=== PATIENT | male | born 1960 | race Caucasian/White ===

== ENCOUNTER → 2020-04-13 14:43 | Outpatient (BNVA) | payer BC, SELFPAY | PROVIDERS: PCP Internal Medicine; Referring Provider Internal Medicine; Visit Provider Internal Medicine Cardiovascular Disease | DX: Z76.89 Persons encountering health services in other specified circumstances (principal) ==

== ENCOUNTER 2020-06-10 08:28 | Outpatient (REF) | payer BC, SELFPAY | END 2020-06-10 08:29 | disposition home or self-care (01) | LOC: HO.LAB 08:28 | PROVIDERS: Visit Provider Internal Medicine | DX: Z20.828 Contact with and (suspected) exposure to other viral communicable diseases (principal) | CPT/HCPCS: C9803; U0003 ==

== ENCOUNTER → 2020-08-30 11:02 | Outpatient (BNVA) | payer MEDICAID, SELFPAY | PROVIDERS: PCP Internal Medicine; Visit Provider Nurse Practitioner Family | DX: I25.10 Atherosclerotic heart disease of native coronary artery without angina pectoris (principal); I21.9 Acute myocardial infarction, unspecified; R42 Dizziness and giddiness; Z79.82 Long term (current) use of aspirin; Z79.899 Other long term (current) drug therapy; Z87.891 Personal history of nicotine dependence | CPT/HCPCS: 99212 ==

== ENCOUNTER → 2020-10-27 07:34 | Outpatient (REF) | payer OTHER, SELFPAY ==
--- NOTE | 2020-10-27 07:40 | CA_ITS ---
Transthoracic Echocardiogram Patient (Last, First, Middle): Harvinder Cope, Gender: Male Date of : 1960 Age: 60 Procedure Date: 10/27/2020 Procedure Type: Transthoracic Echocardiogram Location: OP Height: 172.72 cm Weight: 77.11 kg BSA: 1.91 m2 Heart Rate: bpm BP: 144 / 80 mmHg Bulldogger: DEVIN Referring MD: Joann Valera KILN CAR REPAIRERMilad Cranberry Grower: Flo Vazquez MD Symptoms: I25.10 - Atherosclerotic heart disease of [place] coronary artery without angina pectoris Study Quality: Fair ECG Rhythm: Sinus Conclusions: - 1. Normal LV systolic and diastolic function with regional wall motion abnormality as denoted 2. Mildly dilated ascending aorta 3. Normal cardiac valvular Doppler 4. Normal RV systolic pressure 5. No pericardial effusion Findings Left Ventricle Normal left ventricular size, thickness, and systolic function. The visually estimated ejection fraction is between 55-60%. Spectral Doppler is indicative of a normal filling pattern. Wall Motion Rest Echo Findings The basal inferior, basal inferoseptal, and basal inferolateral segments are akinetic. All other scored wall segments showed normal motion. Right Ventricle Normal right ventricular cavity size and systolic function. Atria Both atria are normal in size. There is no evidence of interatrial shunt. Aortic Valve There is mild calcification of the aortic valve. There is no aortic valve stenosis. There is no aortic valve regurgitation. Mitral Valve There is mild anterior and posterior mitral leaflet thickening. There is trace mitral valve regurgitation. There is no mitral valve stenosis. Pulmonic Valve The pulmonic valve was not well visualized. Tricuspid Valve Likely normal tricuspid valve structure and function. There is trace tricuspid valve regurgitation. The right ventricular systolic pressure is normal. The right ventricular systolic pressure is 24 mmHg. Normal right atrial pressure. There is no evidence of pulmonary hypertension. Great Vessels The pulmonary artery was not well visualized. There is mild dilatation of the ascending aorta measuring 3.80 cm. Venous The inferior vena cava is normal in size and collapses greater than 50% with inspiration. Pericardium/Pleural There is no evidence of pericardial effusion. Prior Study Comparison No prior study available for comparison. Measurements 2D Linear Measurements IVSd: 1.10 0.6-0.9/0.6-1.0 cm LVIDd: 5.65 3.9-5.3/4.2-5.9 cm LVIDd Index: 2.96 2.4-3.2/2.2-3.1 cm/m2 LVIDs: 4.04 2.0-3.6 cm LVPWd: 0.92 0.7-1.1 cm Ao Root: 2.60 2.1-3.5 cm LA Diam: 3.70 2.7-3.8/3.0-4.0 cm LAIDs Index: 1.94 1.5-2.3 cm/m2 LV Mass: 281.69 67-162/88-224 g LV Mass Index: 147.48 43-95/49-115 g/m2 LVOT Diam: 2.00 3.0+(-)1.3 cm 2D Systolic Function EF 4C: 54.50 >55% EF 2C: 56.00 >55% EF BiP: 55.20 >55% Mitral Valve MV Pk E: 1.18 MV PK A: 0.89 MV Decel Time: 203.00 E/A: 1.30 E'Lateral: 11.50 E'Medial: 8.59 E/E' Med: 13.70 E/E' Lat: 10.30 PHT: 60.00 MVA PHT: 3.67 Decel [place]: 5.78 Aortic Valve AoV Pk Nicholas: 1.48 AoV Pk Grad: 9.00 LVOT LVOT Pk Nicholas: 1.04 LVOT Mn Nicholas: 0.73 LVOT VTI: 0.23 LVOT Pk Grad: 4.00 LVOT Mn Grad: 2.00 LVOT Diam: 2.00 LVOT Area: 3.14 Diastolic Function MV Pk E: 1.18 MV Pk A: 0.89 E/A: 1.30 E'Medial: 8.59 E/E' Med: 13.70 E' Laterial: 11.50 E/E' Lat: 10.30 Tricuspid Valve TR Pk Nicholas: 2.29 TR Pk Grad: 21.00 RA Press: 3.00 RVSP: 24.00 Great Vessels Aorta Ao Root-2D: 2.60 2.0-3.7 cm Ao Asc: 3.80 2.1-3.4 cm Updated in Other Vendor System with Status of Final Flo Vazquez MD electronically signed on 10/28/2020 12:38:09 PM with status of Final
== END ==
LOC: HO.CARD 07:34
PROVIDERS: PCP Internal Medicine; Visit Provider Nurse Practitioner Family
DX: I21.9 Acute myocardial infarction, unspecified (principal); I25.10 Atherosclerotic heart disease of native coronary artery without angina pectoris; Z82.49 Family history of ischemic heart disease and other diseases of the circulatory system
CPT/HCPCS: 93306

== ENCOUNTER → 2020-11-02 10:27 | Outpatient (BNVA) | payer OTHER, SELFPAY | PROVIDERS: PCP Internal Medicine; Visit Provider Internal Medicine Cardiovascular Disease | DX: I25.110 Atherosclerotic heart disease of native coronary artery with unstable angina pectoris (principal) | CPT/HCPCS: 99212 ==

== ENCOUNTER 2020-11-02 11:19 | Outpatient (REF) | payer OTHER, SELFPAY ==
[2020-11-02 11:42] LABS: COVID-19 Test Negative (Negative)
== END 2020-11-02 11:20 | disposition home or self-care (01) ==
LOC: HO.LAB 11:19
PROVIDERS: PCP Internal Medicine; Referring Provider Internal Medicine Cardiovascular Disease; Visit Provider Internal Medicine
DX: Z20.822 Contact with and (suspected) exposure to COVID-19 (principal)
CPT/HCPCS: 36415; 87635; C9803

== ENCOUNTER → 2020-11-15 11:42 | Outpatient (BNVA) | payer OTHER, SELFPAY | PROVIDERS: PCP Internal Medicine; Visit Provider Internal Medicine Cardiovascular Disease | DX: I25.10 Atherosclerotic heart disease of native coronary artery without angina pectoris (principal); R06.00 Dyspnea, unspecified | CPT/HCPCS: 99212 ==

== ENCOUNTER → 2020-11-23 08:47 | Outpatient (BNVA) | payer OTHER, SELFPAY | PROVIDERS: PCP Internal Medicine; Visit Provider Internal Medicine | DX: I25.10 Atherosclerotic heart disease of native coronary artery without angina pectoris (principal); R06.00 Dyspnea, unspecified; Z87.891 Personal history of nicotine dependence | CPT/HCPCS: 99202 ==

== ENCOUNTER 2020-11-28 10:01 | Outpatient (REF) | payer OTHER, SELFPAY ==
--- NOTE | 2020-11-28 17:23 | PFT_ITS ---
FLOWS: FEV1 71% of predicted at 2.42 L. FVC 68% of predicted at 3.07 L. FEV1 to FVC ratio of 0.79. Positive bronchodilator response. LUNG VOLUMES: Total lung capacity 74% of predicted at 4.89 L. Residual volume 96% of predicted at 2.05 L. Slow vital capacity 63% of predicted at 2.84 L. Expiratory reserve volume 18% of predicted at 0.23 L. Diffusion capacity is mildly decreased, diffusion capacity corrects to normal after adjustment for alveolar ventilation. IMPRESSION: Moderate restrictive ventilatory defect with positive bronchodilator response. Tanvir Sharif MD AP/MODL / [id number]
== END 2020-11-28 10:02 | disposition home or self-care (01) ==
LOC: HO.RESP 10:01
PROVIDERS: PCP Internal Medicine; Visit Provider Internal Medicine Cardiovascular Disease
DX: R06.00 Dyspnea, unspecified (principal)
CPT/HCPCS: 94060; 94727; 94729

== ENCOUNTER → 2020-12-04 15:28 | Outpatient (BNVA) | payer OTHER, SELFPAY | PROVIDERS: PCP Internal Medicine; Visit Provider Internal Medicine | DX: R06.02 Shortness of breath (principal); J44.9 Chronic obstructive pulmonary disease, unspecified; J98.4 Other disorders of lung; I25.10 Atherosclerotic heart disease of native coronary artery without angina pectoris; I21.9 Acute myocardial infarction, unspecified; Z87.891 Personal history of nicotine dependence; Z88.1 Allergy status to other antibiotic agents; Z88.8 Allergy status to other drugs, medicaments and biological substances; Z79.82 Long term (current) use of aspirin; Z79.899 Other long term (current) drug therapy | CPT/HCPCS: 99212 ==

== ENCOUNTER → 2021-01-03 14:51 | Outpatient (BNVA) | payer OTHER, SELFPAY | PROVIDERS: PCP Internal Medicine; Visit Provider Internal Medicine | DX: J98.4 Other disorders of lung (principal); J44.9 Chronic obstructive pulmonary disease, unspecified; J30.9 Allergic rhinitis, unspecified; Z87.891 Personal history of nicotine dependence | CPT/HCPCS: 99212 ==

== ENCOUNTER → 2021-02-14 12:49 | Outpatient (BNVA) | payer OTHER, SELFPAY | PROVIDERS: PCP Internal Medicine; Visit Provider Internal Medicine Cardiovascular Disease | DX: J98.4 Other disorders of lung (principal); R06.00 Dyspnea, unspecified; I25.10 Atherosclerotic heart disease of native coronary artery without angina pectoris; J44.9 Chronic obstructive pulmonary disease, unspecified; Z87.891 Personal history of nicotine dependence; Z98.890 Other specified postprocedural states; Z82.49 Family history of ischemic heart disease and other diseases of the circulatory system; Z88.1 Allergy status to other antibiotic agents; Z88.8 Allergy status to other drugs, medicaments and biological substances; Z79.899 Other long term (current) drug therapy | CPT/HCPCS: 99212 ==

== ENCOUNTER 2021-02-15 12:38 | Outpatient (REF) | payer OTHER, SELFPAY ==
[2021-02-15 13:08] LABS: Hematocrit 47.1 % (42-52); Hemoglobin 17.1 g/dl (14.0-18.0); IG%MD 0.3 %; Mean Corpuscular HGB Conc 36.3 g/dl (31.0-36.0); Mean Corpuscular Hemoglobin 33.6 pg (27.0-33.0); Mean Corpuscular Volume 92.5 fL (80-98); Mean Platelet Volume 9.2 fL (9.4-12.4); Mono%MD 8.8 %; Neut%MD 59.9 %; Platelet Count 209 X10*3/uL (160-400); Red Blood Count 5.09 X10*6/uL (4.60-5.80); White Blood Count 6.2 X10*3/uL (4.8-10.8)
[2021-02-15 13:28] LABS: Anion Gap 14 (12-20); Blood Urea Nitrogen 8 mg/dL (9-16); Calcium 9.7 mg/dL (8.4-10.2); Carbon Dioxide 26 mmol/L (22-29); Chloride 104 mmol/L (96-108); Estimated Glomerular Filt Rate > 60; Glucose Random 111 mg/dL (60-115); Potassium 4.2 mmol/L (3.3-5.1); Sodium 140 mmol/L (135-145)
[2021-02-15 13:32] LABS: B Type Natriuretic Peptide 26 pg/mL (<100)
[2021-02-15 13:50] LABS: Erythrocyte Sedimentation Rate 2 MM/HR (0-15)
[2021-02-15 14:21] LABS: Band Neutrophils Percent 1 % (3-5); Eosinophils Absolute Manual 0.1 X10*3/UL (0.0-0.8); Eosinophils Percent Manual 2 % (0-4); Lymphocytes Absolute Manual 1.7 X10*3/uL (0.6-4.8); Lymphocytes Percent Manual 27 % (20-40); Monocytes Absolute Manual 0.2 X10*3/uL (0.0-1.2); Monocytes Percent Manual 4 % (2-11); Neutrophils Absolute Manual 4.2 X10*3/uL (2.2-7.9); Neutrophils Percent Manual 66 % (45-73)
[2021-02-15 14:22] LABS: Platelet Estimate NORMAL (NORMAL); Platelet Morphology Comment NORMAL; RBC Morphology NORMAL
== END 2021-02-15 12:39 | disposition home or self-care (01) ==
LOC: HO.LAB 12:38
PROVIDERS: Visit Provider Internal Medicine Cardiovascular Disease
DX: J98.4 Other disorders of lung (principal)
CPT/HCPCS: 36415; 80048; 83880; 85007; 85027; 85652; 86141

== ENCOUNTER 2021-02-26 14:38 | Outpatient (REF) | payer OTHER, SELFPAY ==
--- NOTE | ~2021-02-26 | CT_ITS ---
EXAMINATION: CT CHEST WITHOUT CONTRAST CLINICAL INFORMATION: Other disorder lung COMPARISON: None TECHNIQUE: Multidetector volumetric CT imaging of the chest was done. Axial MIP volume rendering provided. Sagittal and coronal reformatted images were obtained. This CT examination was performed using dose optimization techniques as appropriate, variously including the following: *Automated exposure control *Adjustment of mA and/or kV according to patient size (this includes techniques or standardized protocols for targeted exams where dose is matched to indication/reason for exam; i.e. extremities or head) *Use of iterative reconstruction technique DLP: 270 mGy-cm FINDINGS: LUNGS: There is slight elevation of the right hemidiaphragm. There is increased peripheral markings in the posterior medial right lower lobe adjacent to vertebral body bony osteophyte. This probably represents compressive atelectasis or scarring. The lungs are otherwise clear. No evidence of emphysema, interstitial lung disease or bronchiectasis is seen. There is no endobronchial or endotracheal lesion MEDIASTINUM: There are no enlarged hilar or mediastinal lymph nodes. The heart is upper normal in size. There is coronary artery calcification. Thoracic aorta is upper normal in size. There is no pericardial effusion. The visualized thyroid gland is unremarkable. The esophagus is unremarkable. PLEURA: There is no pleural effusion. No pleural mass or thickening. AXILLA: There is atrophy or fatty replacement of the right lateral pectus muscles. There is shotty bilateral axillary lymphadenopathy. No enlarged lymph nodes are seen. UPPER ABDOMEN: There is fatty infiltration of the liver. There is a calcification adjacent to the right lobe of the liver. OSSEOUS STRUCTURES: There are degenerative changes of the spine. CT/CT chest wo con IMPRESSION: Slightly elevated right hemidiaphragm. Upper normal-size heart and thoracic aorta. Coronary artery calcification. Fatty liver.
== END 2021-02-26 14:39 | disposition home or self-care (01) ==
LOC: HO.CT 14:38
PROVIDERS: PCP Internal Medicine; Visit Provider Internal Medicine Cardiovascular Disease
DX: J98.4 Other disorders of lung (principal)
CPT/HCPCS: 71250

== ENCOUNTER → 2021-03-21 11:08 | Outpatient (BNVA) | payer OTHER, SELFPAY | PROVIDERS: PCP Internal Medicine; Visit Provider Internal Medicine Cardiovascular Disease | DX: I20.8 Other forms of angina pectoris (principal); J44.9 Chronic obstructive pulmonary disease, unspecified; J98.4 Other disorders of lung; R06.00 Dyspnea, unspecified | CPT/HCPCS: 99212 ==

== ENCOUNTER → 2021-04-04 15:11 | Outpatient (BNVA) | payer OTHER, SELFPAY | PROVIDERS: PCP Internal Medicine; Visit Provider Internal Medicine | DX: J98.4 Other disorders of lung (principal); J30.9 Allergic rhinitis, unspecified; J44.9 Chronic obstructive pulmonary disease, unspecified; R06.00 Dyspnea, unspecified; Z87.891 Personal history of nicotine dependence | CPT/HCPCS: 99212 ==

== ENCOUNTER → 2021-04-18 15:15 | Outpatient (BNVA) | payer OTHER, SELFPAY | PROVIDERS: PCP Internal Medicine; Visit Provider Internal Medicine | DX: J98.4 Other disorders of lung (principal); J44.9 Chronic obstructive pulmonary disease, unspecified; J30.9 Allergic rhinitis, unspecified; R06.00 Dyspnea, unspecified; Z87.891 Personal history of nicotine dependence; Z79.51 Long term (current) use of inhaled steroids | CPT/HCPCS: 99212 ==

== ENCOUNTER 2021-05-10 10:32 | Outpatient (REF) | payer OTHER, SELFPAY | END 2021-05-10 10:33 | disposition home or self-care (01) | LOC: HO.LAB 10:32 | PROVIDERS: PCP Internal Medicine; Visit Provider Internal Medicine | DX: Z20.822 Contact with and (suspected) exposure to COVID-19 (principal) | CPT/HCPCS: C9803; U0003; U0005 ==

== ENCOUNTER → 2021-06-27 14:06 | Outpatient (BNVA) | payer OTHER, SELFPAY | PROVIDERS: PCP Internal Medicine; Referring Provider Internal Medicine; Visit Provider Internal Medicine Cardiovascular Disease | DX: I25.119 Atherosclerotic heart disease of native coronary artery with unspecified angina pectoris (principal) | CPT/HCPCS: 99212 ==

== ENCOUNTER 2021-07-04 09:42 | Outpatient (REF) | payer OTHER, SELFPAY ==
--- NOTE | ~2021-07-04 | XR_ITS ---
EXAMINATION: XR SHOULDER, LEFT CLINICAL INFORMATION: Left shoulder pain COMPARISON: None TECHNIQUE: AP external rotation, Grashey, scapular Y, and axillary views of the left shoulder. FINDINGS: Visualized portion of the proximal left humerus demonstrate no fracture. Humeral head demonstrates good articulation with the glenoid fossa. 1 cm sclerotic focus within the left humeral head is nonspecific but statistically a bone island. There is a coarse calcification abutting the greater tuberosity of the humeral head. Moderate degenerative changes of the left acromioclavicular joint. Visualized left-sided ribs and lung parenchyma are unremarkable. XR/XR shoulder LT min 2V IMPRESSION: -Calcific tendinosis of the left shoulder is suspected. No fracture or dislocation.
[2021-07-04 10:51] LABS: Cholesterol 179 mg/dL; HDL Cholesterol 59 mg/dL; LDL Cholesterol Calculated 103 mg/dl; Triglycerides 85 mg/dL
[2021-07-04 10:58] LABS: Anion Gap 14 (12-20); Blood Urea Nitrogen 10 mg/dL (9-16); Calcium 9.9 mg/dL (8.4-10.2); Carbon Dioxide 29 mmol/L (22-29); Chloride 104 mmol/L (96-108); Estimated Glomerular Filt Rate > 60; Glucose Fasting 110 mg/dL (60-99); Potassium 4.4 mmol/L (3.3-5.1); Sodium 143 mmol/L (135-145)
[2021-07-04 11:07] LABS: Erythrocyte Sedimentation Rate 7 MM/HR (0-15)
[2021-07-04 11:10] LABS: Rheumatoid Factor < 15.0 IU/mL (<15.0); Uric Acid 5.4 mg/dL (3.4-7.0)
[2021-07-04 11:30] LABS: Syphilis Screen Nonreactive (Nonreactive)
[2021-07-04 11:40] LABS: Folate 8.5 ng/mL (> or = 4.0); Vitamin B12 348 pg/mL (200-900)
[2021-07-05 06:41] LABS: Lyme Blot 1.12 index
[2021-07-05 16:52] LABS: IgA 215 mg/dL (47-310); IgG 959 mg/dL (600-1640); IgM 182 mg/dL (50-300)
[2021-07-05 23:16] LABS: Anti Nuclear Antibody Screen NEGATIVE (NEGATIVE)
[2021-07-09 09:05] LABS: 18 KD (IgG) Band NON-REACTIVE; 23 KD (IgG) Band NON-REACTIVE; 23 KD (IgM) Band REACTIVE; 28 KD (IgG) Band NON-REACTIVE; 30 KD (IgG) Band NON-REACTIVE; 39 KD (IgM) Band NON-REACTIVE; 41 KD (IgM) Band NON-REACTIVE; 45 KD (IgG) Band NON-REACTIVE; 58 KD (IgG) Band NON-REACTIVE; 66 KD (IgG) Band NON-REACTIVE; 93 KD (IgG) Band NON-REACTIVE; Lyme Abs Screen POSITIVE; Lyme IgG Blot Interp NEGATIVE (NEGATIVE); Lyme IgM Blot Interp NEGATIVE (NEGATIVE)
== END 2021-07-04 09:43 | disposition home or self-care (01) ==
LOC: HO.XRAY 09:42
PROVIDERS: Absent Provider Internal Medicine Cardiovascular Disease; PCP Internal Medicine; Visit Provider Psychiatry & Neurology Neurology
DX: G62.9 Polyneuropathy, unspecified (principal); M19.90 Unspecified osteoarthritis, unspecified site; I25.10 Atherosclerotic heart disease of native coronary artery without angina pectoris
CPT/HCPCS: 36415; 73030; 80048; 80061; 82550; 82607; 82746; 82784; 84550; 85652; 86038; 86039; 86431; 86617; 86618; 86780

== ENCOUNTER → 2021-07-11 15:26 | Outpatient (BNVA) | payer OTHER, SELFPAY | PROVIDERS: PCP Internal Medicine; Visit Provider Internal Medicine | DX: J44.9 Chronic obstructive pulmonary disease, unspecified (principal); J30.9 Allergic rhinitis, unspecified; J98.4 Other disorders of lung; Z87.891 Personal history of nicotine dependence | CPT/HCPCS: 99212 ==

== ENCOUNTER → 2021-08-14 13:47 | Outpatient (BNVA) | payer OTHER, SELFPAY | PROVIDERS: PCP Internal Medicine; Visit Provider Physician Assistant | DX: M75.32 Calcific tendinitis of left shoulder (principal); M25.512 Pain in left shoulder; I25.10 Atherosclerotic heart disease of native coronary artery without angina pectoris; Z87.891 Personal history of nicotine dependence; Z98.890 Other specified postprocedural states; Z82.49 Family history of ischemic heart disease and other diseases of the circulatory system; Z88.1 Allergy status to other antibiotic agents; Z88.8 Allergy status to other drugs, medicaments and biological substances; Z79.899 Other long term (current) drug therapy; Z86.74 Personal history of sudden cardiac arrest | CPT/HCPCS: 99202; J1040 ==

== ENCOUNTER → 2021-09-18 15:19 | Outpatient (BNVA) | payer OTHER, SELFPAY | PROVIDERS: PCP Internal Medicine; Visit Provider Physician Assistant | DX: M75.32 Calcific tendinitis of left shoulder (principal) | CPT/HCPCS: 99212 ==

== ENCOUNTER → 2021-11-12 14:16 | Outpatient (BNVA) | payer OTHER, SELFPAY | PROVIDERS: PCP Internal Medicine; Visit Provider Internal Medicine | DX: J30.9 Allergic rhinitis, unspecified (principal); J98.4 Other disorders of lung; J44.9 Chronic obstructive pulmonary disease, unspecified; Z79.899 Other long term (current) drug therapy; Z87.891 Personal history of nicotine dependence | CPT/HCPCS: 99212 ==

== ENCOUNTER → 2021-11-21 14:00 | Outpatient (BNVA) | payer OTHER, SELFPAY | PROVIDERS: PCP Internal Medicine; Referring Provider Internal Medicine; Visit Provider Nurse Practitioner Family | DX: I25.10 Atherosclerotic heart disease of native coronary artery without angina pectoris (principal); E78.5 Hyperlipidemia, unspecified; J44.9 Chronic obstructive pulmonary disease, unspecified; I25.2 Old myocardial infarction; Z79.02 Long term (current) use of antithrombotics/antiplatelets; Z79.899 Other long term (current) drug therapy | CPT/HCPCS: 93005; 99212 ==

== ENCOUNTER 2022-03-22 14:35 | Outpatient (REF) | payer OTHER, SELFPAY ==
--- NOTE | ~2022-03-22 | CT_ITS ---
EXAMINATION: CT CHEST SCREENING CLINICAL INFORMATION: Former smoker 1 BPD x47 years. Quit x2 years. COMPARISON: None. TECHNIQUE: Multidetector volumetric CT imaging of the chest is performed without contrast using low dose technique. Additional 2D coronal and sagittal reformatted images and axial 3D maximum intensity projection (MIP) images are generated on the CT workstation. This CT examination was performed using dose optimization techniques as appropriate, variously including the following: *Automated exposure control *Adjustment of mA and/or kV according to patient size (this includes techniques or standardized protocols for targeted exams where dose is matched to indication/reason for exam; i.e. extremities or head) *Use of iterative reconstruction technique DLP: 68 mGy-cm FINDINGS: LUNGS: The lungs are well expanded and clear of acute pneumonic process. There is a patchy opacity in the right lower lobe mediobasal segment similar to previous study likely focal atelectasis. No pulmonary nodules, consolidation or ground-glass density seen. MEDIASTINUM: The thyroid lobes are symmetrical and normal. The central trachea and the bronchi are widely patent. The heart size and the great vessels are normal caliber. There is no pericardial effusion seen. No abnormal size mediastinal or hilar lymph nodes seen. CORONARY ARTERY CALCIFICATION: Moderate size coronary artery calcification seen. PLEURA: There is no pleural effusion. No pleural mass or thickening. AXILLA: No abnormal size lymph node seen. UPPER ABDOMEN: The liver is diffusely attenuated without any focal lesion or intrahepatic ductal dilatation. There are no radiopaque gallstones. Visualized spleen, pancreas and bilateral adrenal glands are unremarkable. OSSEOUS STRUCTURES: No lytic or sclerotic process seen. CT/CT lung screening IMPRESSION: No pulmonary nodules seen. Focal atelectasis right lower lobe mediobasal segment. Low-dose annual CT chest exam. ASSESSMENT: Lung-RADS category 1 RECOMMENDATION: Low-dose annual CT chest.
== END 2022-03-22 14:36 | disposition home or self-care (01) ==
LOC: HO.CT 14:35
PROVIDERS: PCP Internal Medicine; Visit Provider Physician Assistant Medical
DX: Z12.2 Encounter for screening for malignant neoplasm of respiratory organs (principal); Z87.891 Personal history of nicotine dependence
CPT/HCPCS: 71271; G0296

== ENCOUNTER → 2022-05-16 14:39 | Outpatient (BNVA) | payer OTHER, SELFPAY | PROVIDERS: PCP Internal Medicine; Visit Provider Internal Medicine | DX: J44.9 Chronic obstructive pulmonary disease, unspecified (principal); J98.4 Other disorders of lung; J30.9 Allergic rhinitis, unspecified; R06.00 Dyspnea, unspecified; Z79.899 Other long term (current) drug therapy | CPT/HCPCS: 99212 ==

== ENCOUNTER → 2022-05-22 13:08 | Outpatient (BNVA) | payer OTHER, SELFPAY | PROVIDERS: PCP Internal Medicine; Referring Provider Internal Medicine; Visit Provider Internal Medicine Cardiovascular Disease | DX: I25.118 Atherosclerotic heart disease of native coronary artery with other forms of angina pectoris (principal); Z79.02 Long term (current) use of antithrombotics/antiplatelets; Z95.5 Presence of coronary angioplasty implant and graft | CPT/HCPCS: 99212 ==

== ENCOUNTER → 2022-11-11 14:39 | Outpatient (BNVA) | payer MEDICARE, MEDICAID, SELFPAY | PROVIDERS: PCP Internal Medicine; Visit Provider Internal Medicine | DX: J44.9 Chronic obstructive pulmonary disease, unspecified (principal); J98.4 Other disorders of lung; J30.9 Allergic rhinitis, unspecified; R06.00 Dyspnea, unspecified; Z87.891 Personal history of nicotine dependence | CPT/HCPCS: 99212 ==

== ENCOUNTER → 2022-11-18 13:27 | Outpatient (BNVA) | payer MEDICARE, MEDICAID, SELFPAY | PROVIDERS: PCP Internal Medicine; Referring Provider Internal Medicine; Visit Provider Internal Medicine Cardiovascular Disease | DX: I25.118 Atherosclerotic heart disease of native coronary artery with other forms of angina pectoris (principal); R06.00 Dyspnea, unspecified | CPT/HCPCS: 93005; 99212 ==

== ENCOUNTER 2023-02-17 14:29 | Outpatient (AMB) | payer MEDICARE, MEDICAID, SELFPAY ==
--- NOTE | 2023-02-17 14:31 | MHC.OFFVIS ---
Intake Vital Signs 02/17/23 14:38 Height 5 ft 8 in Weight 196 lb BMI 29.8 BP 138/78 Blood Pressure Location Rt brachial Position Sitting Intake Visit Reasons: 3 MON FUP Intake Note: Patient is present for 3 Month follow up Patient Reports Amlodipine was decreased by to 5mg from 10mg due to side effects Patient States that his blood pressure has been good. States that his readings has been normal. 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 Allergies azithromycin Allergy (Unknown, Verified 02/17/23 14:40) Unknown losartan Adverse Reaction (Unknown, Verified 02/17/23 14:40) Unknown Medication List - Last Reconciled 02/17/23 by Alex Galarza MD Advair Diskus 250-50 mcg/dose (fluticasone propion-salmeterol) 1 inh inhalation BID NS albuterol sulfate 90 mcg/actuation 2 puffs inhalation Q4H PRN amlodipine 5 mg PO DAILY aspirin (Adult Low Dose Aspirin) 81 mg PO DAILY clopidogrel (Plavix) 75 mg PO DAILY ezetimibe (Zetia) 10 mg PO DAILY fexofenadine (Radha Allergy) 180 mg PO DAILY fluticasone propionate 50 mcg/actuation 2 sprays intranasal DAILY metoprolol succinate ER (Toprol XL) 100 mg PO DAILY nitroglycerin 0.4 mg sublingual Q5M PRN rosuvastatin 10 mg PO DAILY umeclidinium 62.5 mcg/actuation (Incruse Ellipta) 1 inh inhalation BEDTIME 30 days HPI HPI Comments History of Present Illness Details 62-year-old gentleman here follow-up. He had previous PCI to circumflex and right coronary. Left anterior descending artery was approximately 60-65% stenosis at that time . He presented for f/u and was complaining of shortness of breath. He was taken back for cardiac catheterization which showed patent stents in the right coronary artery as well as left circumflex artery. We performed FFR assessment of his left anterior descending artery which was abnormal. On pullback the gradient improved distal to the area of angiographic stenosis. Angiographically we could not find any stenosis in the area where the gradient actually existed. Also he was complaining of a lot of discomfort at rest which was not explained by the degree of coronary artery disease. We decided to stop and medically treat him and look for other reasons for his dyspnea. He was a former smoker and quit a year ago. He has followed up with pulmonology and has been diagnosed with asthma/COPD. He is on inhalers and is improving clinically. He returns for follow-up today. He has been doing reasonably well. He is able to walk and do activities but when he is going up hill he gets out of breath. He has not exercised significantly due to his breathing in the last year or 2 and probably has significant deconditioning at this 0.2. He is following with pulmonology and has been told that he is stable on the current inhalers. When he presented with acute coronary syndrome he had significant sweating and shortness of breath. He gets shortness of breath and chest tightness off and on which improves with inhalers. His main complaint is fatigue and the fact that he gets tired easily. I have explained to him that this is an unusual symptom for coronary disease. 02/17/2023: He returns for follow-up. He has been doing well. No chest discomfort or exertional shortness of breath. He is getting some breathing issues due to humidity. Taking medications regularly. No bleeding concerns. Overall clinically stable. [facility] Medical History History of nasal cavity, middle ear, or sinus malignancy History of ST elevation myocardial infarction (STEMI) Personal history of nicotine dependence Allergic rhinitis Restrictive lung disease Asthma-COPD overlap syndrome Family history of coronary artery disease CAD (coronary artery disease) Stable angina Surgical History History of nasal septoplasty History of tonsillectomy S/P cardiac cath Family History Father CVD (cardiovascular disease) Mother CVD (cardiovascular disease) Maternal Grandfather CVD (cardiovascular disease) Maternal Grandmother CVD (cardiovascular disease) Paternal Grandfather CVD (cardiovascular disease) Paternal Grandmother CVD (cardiovascular disease) Social History Alcohol intake: current Alcohol intake frequency: 0-2 drinks per day Alcohol type: beer Patient Tobacco Use Status: Former Tobacco user Quit Date: 2019 Tobacco use type: Cigarette Years Smoked: (former smoker, onset 26yo, 1ppd x 32yrs, 30pyh, quit 2019) Advance Directives Date on File: 03/10/20 Physical Exam Vital Signs: Last Vital Signs BP 138/78 02/17/23 14:38 BMI result Body Mass Index 29.8 GENERAL APPEARANCE: in no acute distress, pleasant. NECK: no carotid bruit, no jugular venous distention. SKIN: no suspicious lesions, warm and dry. HEART: no murmurs, regular rate and rhythm. LUNGS: clear to auscultation bilaterally. ABDOMEN: soft, nontender. EXTREMITIES: no edema. PERIPHERAL PULSES: equal. NEUROLOGIC: No gross deficits, AAO X 3 Assessment & Plan Assessment & Plan (1) Stable angina: Code(s): I20.8 - Other forms of angina pectoris Plan Pleasant 62 year gentleman who is here for follow-up. He has stable angina pectoris. He had RCA and circumflex PCI in the setting of STEMI. He was also noticed to have proximal LAD stenosis which was later checked with IFR but there was some discrepancy about the location of IFR abnormality and actual angiographic stenosis. It was decided to medically treat him and he has done well since then. He was diagnosed with lung disease and has been following closely with pulmonology. Overall clinically stable. Continue same medications for now. Follow-up with us in 4 months. Thank you for allowing me to participate in the care of your patient. Please feel free to contact me if you have any questions. Coding Level of Care Code Est Pt Level 4 (93354) Diagnoses Stable angina I20.8
[2023-02-17 14:38] VITALS: BP 138/78; BMI 29.8
== END 2023-02-17 14:55 | disposition home or self-care (01) ==
PROVIDERS: PCP Internal Medicine; Visit Provider Internal Medicine Cardiovascular Disease
DX: I20.8 Other forms of angina pectoris (principal)
CPT/HCPCS: 99214

== ENCOUNTER → 2023-02-17 14:29 | Outpatient (BNVA) | payer MEDICARE, MEDICAID, SELFPAY | PROVIDERS: PCP Internal Medicine; Visit Provider Internal Medicine Cardiovascular Disease | DX: I20.8 Other forms of angina pectoris (principal) | CPT/HCPCS: 99212 ==

== ENCOUNTER 2023-05-13 14:45 | Outpatient (AMB) | payer MEDICARE, MEDICAID, SELFPAY ==
[2023-05-13 15:06] VITALS: BP 102/72; PULSE 90; O2SAT 96; BMI 30.4
--- NOTE | 2023-05-13 15:06 | A.OFFVIS_ITS ---
Intake Vital Signs 05/13/23 15:06 Height 5 ft 8 in Weight 200 lb BMI 30.4 BP 102/72 Blood Pressure Location Lt brachial Position Sitting Pulse 90 Pulse Source Pulse Oximeter Pulse Oximetry (%) 96 Oxygen Delivery Method Room Air Intake Visit Reasons: Dyspnea Intake Note: pt is here for follow up and is not bad with breathing, weather changes botheri ng him, and coughing up colored phelgm. 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 Allergies azithromycin Allergy (Unknown, Verified 05/13/23 15:21) Unknown losartan Adverse Reaction (Unknown, Verified 05/13/23 15:21) Unknown Medication List - Last Reconciled 05/13/23 by Heath Vera MD Advair Diskus 250-50 mcg/dose (fluticasone propion-salmeterol) 1 inh inhalation BID NS albuterol sulfate 90 mcg/actuation 2 puffs inhalation Q4H PRN amlodipine 5 mg PO DAILY aspirin (Adult Low Dose Aspirin) 81 mg PO DAILY clopidogrel (Plavix) 75 mg PO DAILY ezetimibe (Zetia) 10 mg PO DAILY fexofenadine (Radha Allergy) 180 mg PO DAILY PRN fluticasone propionate 50 mcg/actuation 2 sprays intranasal DAILY PRN metoprolol succinate ER (Toprol XL) 100 mg PO DAILY nitroglycerin 0.4 mg sublingual Q5M PRN rosuvastatin 10 mg PO DAILY umeclidinium 62.5 mcg/actuation (Incruse Ellipta) 1 inh inhalation BEDTIME 30 days Do you need a note to return to daycare/school/sports/work: No HPI Dyspnea HPI Details THIS 62 YEARS OLD GENTLEMAN IS FOR HIS ROUTINE FOLLOW-UP AFTER 6 MONTHS. HE CLAIMS THAT THE FALL AND SPRING SEASONS OR BAD FOR HIS ALLERGIES. SO HE IS JUST OVER COMING INCREASED COUGH AND SHORTNESS OF BREATH WHICH RESULTED DUE TO CHANGE IN THE WEATHER. HE WAKES UP WITH A DRY MOUTH AND SOME FEELING OF MUCUS. ONCE HE GOES IN THE SHOWER AND BRINGS UP A FEW CHUNKS OF MUCUS HE FEELS MUCH BETTER WITH THE REST OF THE DAY. HE DOES HAVE ADVAIR 250-50 1 INHALATION B.I.D. WHICH HE USES 1 OR 2 PUFFS A DAY, NOW BECAUSE OF INCREASED SYMPTOMS HE IS STARTING TO USE 1 INHALATION B.I.D. REGULARLY. HE ALSO USES INCRUSE ELLIPTA 1 INHALATION DAILY IN THE EVENING. MILD NASAL CONGESTION WHICH IS CONTROLLED WITH USE OF THE FLONASE AND FEXOFENADINE 180 MG ONCE A DAY [facility].R.N.. [facility] Medical History History of nasal cavity, middle ear, or sinus malignancy History of ST elevation myocardial infarction (STEMI) Personal history of nicotine dependence Allergic rhinitis Restrictive lung disease Asthma-COPD overlap syndrome Family history of coronary artery disease CAD (coronary artery disease) Stable angina Surgical History History of nasal septoplasty History of tonsillectomy S/P cardiac cath Family History Father CVD (cardiovascular disease) Mother CVD (cardiovascular disease) Maternal Grandfather CVD (cardiovascular disease) Maternal Grandmother CVD (cardiovascular disease) Paternal Grandfather CVD (cardiovascular disease) Paternal Grandmother CVD (cardiovascular disease) Social History Alcohol intake: current Alcohol intake frequency: 0-2 drinks per day Alcohol type: beer Patient Tobacco Use Status: Former Tobacco user Quit Date: 2019 Tobacco use type: Cigarette Years Smoked: (former smoker, onset 26yo, 1ppd x 32yrs, 30pyh, quit 2019) Advance Directives Date on File: 03/10/20 Review of Systems Const All systems reviewed & are unremarkable except as noted in HPI and below Eyes Reports no additional complaints ENT Reports nasal congestion (Controlled) Card Denies chest pain, Denies irregular heart rhythm and Denies leg edema Resp Reports as per HPI GI Reports no additional complaints Reports no additional complaints Musc Reports myalgias Skin/Breast Reports system reviewed and no additional complaints, except as documented Neuro Reports no additional complaints Psych Reports no additional complaints Endo Reports no additional complaints Physical Exam Vital Signs: Last Vital Signs Pulse 90 05/13/23 15:06 BP 102/72 05/13/23 15:06 Pulse Ox 96 05/13/23 15:06 Oxygen Delivery Method Room Air 05/13/23 15:06 BMI result Body Mass Index 30.4 Const General: comfortable, no acute distress, alert and awake Orientation/consciousness: patient oriented x3 HEENT Head: Yes normal to inspection General nose exam: No nasal polyps present and No nasal discharge present Face and sinus: Yes sinuses nontender Mouth: oropharynx normal Throat: Yes posterior oropharynx normal Eyes General: appearance normal, both eyes and all related structures Neck Neck: Yes normal visual inspection, Yes no lymphadenopathy, Yes trachea midline and Yes no JVD Thyroid: Thyroid normal Chest Chest palpation & inspection: normal inspection of the chest, normal palpation of entire chest wall and no tenderness Resp Other: Percussion note is resonant, breath sounds are slightly distant with prolonged expiratory phase. No wheezes rhonchi or crepitations are heard. Cardio Palpation: normal PMI Rate: regular rate Rhythm: regular rhythm Heart sounds: no gallops and no murmurs Peripheral pulses: Peripheral pulses 2+ throughout GI Palpation (GI): Soft to palpation, nontender, No hepatosplenomegaly present and no masses Auscultation: normal bowel sounds Back/Spine/Pelvis Thoracic/Lumbar Spine: thoracic and lumbar spine normal to inspection, thoraco- lumbar ROM limited and thoraco-lumbar spasm Skin General skin exam: no rashes or lesions noted Neuro General: patient oriented x3 and no focal motor deficits Cranial nerves: Yes CN's II-XII intact bilaterally Extrem General: Yes normal to inspection, Yes no clubbing, cyanosis or edema and Yes no calf tenderness Psych Appearance: grossly normal and well kempt Speech and movement: Normal speech and movement present Assessment & Plan Assessment & Plan (1) Asthma-COPD overlap syndrome: Comment: (Former smoker, PFT showed [id number] obstructive airway disorder with excellent response to bronchodilator therapy) Patient claims to be feeling better with the current medical regimen. TX : Continue Advair 250-50 1 INH. bid ( at present he is using only 1 inhalation in the morning, I told him that if he is symptomatic then should go up to b.i.d. ) Continue INCRUSE Ellipta , 1 inhalation daily. And use ProAir 2 puffs Q 4-6 hours only p.r.n.. ( Script renewed ) Code(s): J44.9 - Chronic obstructive pulmonary disease, unspecified Plan: IN ADDITION TO THE ABOVE-NOTED REGIMEN, HE NEEDS TO USE THE VAPORIZER, ESPECIALLY IN THE BEDROOM AT NIGHTTIME. HE ADMITS THAT THE HUMIDIFICATION DOES HELP. (2) Allergic rhinitis: Comment: MILD TO MODERATE , chronic , may be the source of mucous in AMs. Seems to be controlled with current meds. TX: Continue using Flonase 2 spray each nostril daily and may use fexofenadine 180 mg or Claritin 10 mg once a day p.r.n. Reduce use of Dairy products, ( that should help to reduce the amount of mucus ) Code(s): J30.9 - Allergic rhinitis, unspecified Plan: ABOVE Coding Level of Care Code Est Pt Level 3 (11468) Diagnoses Asthma-COPD overlap syndrome J44.9 Allergic rhinitis J30.9
== END 2023-05-13 15:38 | disposition home or self-care (01) ==
PROVIDERS: PCP Internal Medicine; Visit Provider Internal Medicine
DX: J44.9 Chronic obstructive pulmonary disease, unspecified (principal); J30.9 Allergic rhinitis, unspecified
CPT/HCPCS: 99213

== ENCOUNTER → 2023-05-13 14:45 | Outpatient (BNVA) | payer MEDICARE, MEDICAID, SELFPAY | PROVIDERS: PCP Internal Medicine; Visit Provider Internal Medicine | DX: J44.9 Chronic obstructive pulmonary disease, unspecified (principal); J30.9 Allergic rhinitis, unspecified | CPT/HCPCS: 99212 ==

== ENCOUNTER 2023-06-16 15:29 | Outpatient (REF) | payer MEDICARE, MEDICAID, SELFPAY ==
--- NOTE | ~2023-06-16 | CT_ITS ---
EXAMINATION: CT CHEST SCREENING CLINICAL INFORMATION: Former smoker, quit 3 years ago. One pack per day for 32 years. COMPARISON: CT 03/22/2022. TECHNIQUE: Multidetector volumetric CT imaging of the chest is performed without contrast using low-dose technique. Additional 2D coronal and sagittal reformatted images and axial 3D maximum intensity projection (MIP) images are generated on the CT workstation. This CT examination was performed using dose optimization techniques as appropriate, variously including the following: *Automated exposure control *Adjustment of mA and/or kV according to patient size (this includes techniques or standardized protocols for targeted exams where dose is matched to indication/reason for exam; i.e. extremities or head) *Use of iterative reconstruction technique DLP: 56 mGy-cm FINDINGS: LUNGS: The lungs are well expanded and clear of acute pneumonic process. There has been interval clearing of the ill-defined patchy opacity in the right lower lobe mediobasal segment with some mild residual changes remaining. No concerning pulmonary nodules. MEDIASTINUM: The thyroid is unremarkable. The heart size and the great vessels are normal caliber. There is no pericardial effusion seen. No abnormal size mediastinal or hilar lymph nodes seen. CORONARY ARTERY CALCIFICATION: Moderate size coronary artery calcification seen. PLEURA: There is no pleural effusion. No pleural mass or thickening. AXILLA: No abnormal size lymph node seen. UPPER ABDOMEN: Again seen is diffusely decreased hepatic attenuation without any focal lesion or intrahepatic ductal dilatation. There are no radiopaque gallstones. Visualized spleen, pancreas and bilateral adrenal glands are unremarkable. OSSEOUS STRUCTURES: No lytic or sclerotic process seen. CT/CT lung screening IMPRESSION: No pulmonary nodules seen. Improved right lower lobe patchy density. ASSESSMENT: Lung-RADS category 1. RECOMMENDATION: Routine annual low-dose CT screening in 12 months.
== END 2023-06-16 15:30 | disposition home or self-care (01) ==
LOC: HO.CT 15:29
PROVIDERS: PCP Internal Medicine; Visit Provider Nurse Practitioner Family
DX: Z12.2 Encounter for screening for malignant neoplasm of respiratory organs (principal); Z87.891 Personal history of nicotine dependence
CPT/HCPCS: 71271

== ENCOUNTER 2023-06-23 13:41 | Outpatient (AMB) | payer MEDICARE, MEDICAID, SELFPAY ==
[2023-06-23 13:53] VITALS: BP 132/62; PULSE 85; BMI 27.1
--- NOTE | 2023-06-23 13:53 | MHC.OFFVIS ---
Intake Vital Signs 06/23/23 13:53 Height 5 ft 8 in Weight 178 lb 5.663 oz BMI 27.1 BP 132/62 Blood Pressure Location Lt brachial Position Sitting Pulse 85 Pulse Source Pulse Oximeter Intake Visit Reasons: 4 mth fu Intake Note: 4 mnth f/up pt its feeling fine. Math Instructor Required: No Accompanied by: Self / Same As Patient Allergies azithromycin Allergy (Unknown, Verified 05/13/23 15:21) Unknown losartan Adverse Reaction (Unknown, Verified 05/13/23 15:21) Unknown Medication List - Last Reconciled 06/23/23 by Alex Galarza MD Advair Diskus 250-50 mcg/dose (fluticasone propion-salmeterol) 1 inh inhalation BID NS albuterol sulfate 90 mcg/actuation (Ventolin HFA) 2 puffs inhalation Q4H PRN amlodipine 5 mg PO DAILY aspirin (Adult Low Dose Aspirin) 81 mg PO DAILY clopidogrel (Plavix) 75 mg PO DAILY ezetimibe (Zetia) 10 mg PO DAILY fexofenadine (Radha Allergy) 180 mg PO DAILY PRN fluticasone propionate 50 mcg/actuation 2 sprays intranasal DAILY PRN metoprolol succinate ER (Toprol XL) 100 mg PO DAILY nitroglycerin 0.4 mg sublingual Q5M PRN rosuvastatin 10 mg PO DAILY umeclidinium 62.5 mcg/actuation (Incruse Ellipta) 1 inh inhalation BEDTIME 30 days HPI HPI Comments History of Present Illness Details 62-year-old gentleman here follow-up. He had previous PCI to circumflex and right coronary. Left anterior descending artery was approximately 60-65% stenosis at that time . He presented for f/u and was complaining of shortness of breath. He was taken back for cardiac catheterization which showed patent stents in the right coronary artery as well as left circumflex artery. We performed FFR assessment of his left anterior descending artery which was abnormal. On pullback the gradient improved distal to the area of angiographic stenosis. Angiographically we could not find any stenosis in the area where the gradient actually existed. Also he was complaining of a lot of discomfort at rest which was not explained by the degree of coronary artery disease. We decided to stop and medically treat him and look for other reasons for his dyspnea. He was a former smoker and quit a year ago. He has followed up with pulmonology and has been diagnosed with asthma/COPD. He is on inhalers and is improving clinically. He returns for follow-up today. He has been doing reasonably well. He is able to walk and do activities but when he is going up hill he gets out of breath. He has not exercised significantly due to his breathing in the last year or 2 and probably has significant deconditioning at this 0.2. He is following with pulmonology and has been told that he is stable on the current inhalers. When he presented with acute coronary syndrome he had significant sweating and shortness of breath. He gets shortness of breath and chest tightness off and on which improves with inhalers. His main complaint is fatigue and the fact that he gets tired easily. I have explained to him that this is an unusual symptom for coronary disease. 02/17/2023: He returns for follow-up. He has been doing well. No chest discomfort or exertional shortness of breath. He is getting some breathing issues due to humidity. Taking medications regularly. No bleeding concerns. Overall clinically stable. 06/23/2023: He returns for follow-up. His dyspnea has been stable. He gets sharp left-sided chest pain lasting for few seconds along with right shoulder and leg pain. He has seen Neurology and was told that he has neuropathy. No exertional symptoms reported on follow-up. His last LDL cholesterol was 103. His target is less than 70 and by guidelines less than 55. He has not tolerated more than 10 mg of rosuvastatin. He is already on ezetimibe 10 mg daily. We discussed about PCSK9 but he has needle phobia and will not be able to inject himself. [facility] Medical History History of nasal cavity, middle ear, or sinus malignancy History of ST elevation myocardial infarction (STEMI) Personal history of nicotine dependence Allergic rhinitis Restrictive lung disease Asthma-COPD overlap syndrome Family history of coronary artery disease CAD (coronary artery disease) Stable angina Surgical History History of nasal septoplasty History of tonsillectomy S/P cardiac cath Family History Father CVD (cardiovascular disease) Mother CVD (cardiovascular disease) Maternal Grandfather CVD (cardiovascular disease) Maternal Grandmother CVD (cardiovascular disease) Paternal Grandfather CVD (cardiovascular disease) Paternal Grandmother CVD (cardiovascular disease) Social History Alcohol intake: current Alcohol intake frequency: 0-2 drinks per day Alcohol type: beer Patient Tobacco Use Status: Former Tobacco user Quit Date: 2019 Tobacco use type: Cigarette Years Smoked: (former smoker, onset 26yo, 1ppd x 32yrs, 30pyh, quit 2019) Advance Directives Date on File: 03/10/20 Review of Systems Const Reports chills, Reports fatigue, Reports fever(s), Reports frequent falls, Reports weakness, Reports weight gain and Reports weight loss ENT Reports dizziness Card Reports chest pain, Reports leg edema, Reports lightheadedness, Reports palpitations, Reports dyspnea and Reports dyspnea on exertion Resp Reports cough, Reports dyspnea and Reports dyspnea on exertion GI Reports hematochezia Musc Reports abnormal gait, Reports muscle weakness, Reports numbness, Reports radiating pain into limb and Reports tingling Neuro Reports abnormal gait, Reports dizziness, Reports frequent falls, Reports numbness, Reports tingling and Reports weakness Endo Reports fatigue and Reports palpitations Physical Exam Vital Signs: Last Vital Signs Pulse 85 06/23/23 13:53 BP 132/62 06/23/23 13:53 BMI result Body Mass Index 27.1 GENERAL APPEARANCE: in no acute distress, pleasant. NECK: no carotid bruit, no jugular venous distention. SKIN: no suspicious lesions, warm and dry. HEART: no murmurs, regular rate and rhythm. LUNGS: clear to auscultation bilaterally. ABDOMEN: soft, nontender. EXTREMITIES: no edema. PERIPHERAL PULSES: equal. NEUROLOGIC: No gross deficits, AAO X 3 Assessment & Plan Assessment & Plan (1) Stable angina: Code(s): I20.8 - Other forms of angina pectoris (2) Hyperlipidemia: Code(s): E78.5 - Hyperlipidemia, unspecified Plan Pleasant 63 year gentleman presenting for follow-up. He has known history of coronary disease and had previous PCI to right coronary artery and circumflex artery in the setting of ST-elevation HI. he had residual LAD disease for which he had angiography later on with IFR assessment but we decided to medically treat him at that time. He has done well with medical management. Blood pressure is well controlled. His LDL cholesterol is high. He is unable to tolerate statins due to muscle aches. He is on ezetimibe already. He can not use PCSK9 because of needle phobia. Would start him on bempedoic acid. We will check for insurance coverage. Thank you for allowing me to participate in the care of your patient. Please feel free to contact me if you have any questions. Coding Level of Care Code Est Pt Level 4 (59598) Diagnoses Stable angina I20.8 Hyperlipidemia E78.5
== END 2023-06-23 14:36 | disposition home or self-care (01) ==
PROVIDERS: PCP Internal Medicine; Visit Provider Internal Medicine Cardiovascular Disease
DX: I20.8 Other forms of angina pectoris (principal); E78.5 Hyperlipidemia, unspecified
CPT/HCPCS: 99214

== ENCOUNTER → 2023-06-23 13:41 | Outpatient (BNVA) | payer MEDICARE, MEDICAID, SELFPAY | PROVIDERS: PCP Internal Medicine; Visit Provider Internal Medicine Cardiovascular Disease | DX: I20.89 Other forms of angina pectoris (principal); E78.5 Hyperlipidemia, unspecified | CPT/HCPCS: 99212 ==

== ENCOUNTER 2023-10-06 13:32 | Outpatient (AMB) | payer MEDICARE, MEDICAID, SELFPAY ==
[2023-10-06 13:35] VITALS: BP 140/72; PULSE 88; BMI 30.5
--- NOTE | 2023-10-06 13:35 | MHC.OFFVIS ---
Vital Signs 10/06/23 13:35 Height 5 ft 8 in Weight 200 lb 9.93 oz BMI 30.5 BP 140/72 H Blood Pressure Location Lt brachial Position Sitting Pulse 88 Pulse Source Pulse Oximeter Intake Visit Reasons: 3 mth f/up Intake Note: pt state that he its doing fine. 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 Accompanied by: Self / Same As Patient Allergies azithromycin Allergy (Unknown, Verified 05/13/23 15:21) Unknown losartan Adverse Reaction (Unknown, Verified 05/13/23 15:21) Unknown Medication List - Last Reconciled 10/06/23 by Alex Galarza MD Advair Diskus 250-50 mcg/dose (fluticasone propion-salmeterol) 1 inh inhalation BID NS albuterol sulfate 90 mcg/actuation (Ventolin HFA) 2 puffs inhalation Q4H PRN amlodipine 5 mg PO DAILY aspirin (Adult Low Dose Aspirin) 81 mg PO DAILY bempedoic acid 180 mg PO DAILY clopidogrel (Plavix) 75 mg PO DAILY ezetimibe (Zetia) 10 mg PO DAILY fexofenadine (Radha Allergy) 180 mg PO DAILY PRN fluticasone propionate 50 mcg/actuation 2 sprays intranasal DAILY metoprolol succinate ER (Toprol XL) 100 mg PO DAILY nitroglycerin 0.4 mg sublingual Q5M PRN rosuvastatin 10 mg PO DAILY umeclidinium 62.5 mcg/actuation (Incruse Ellipta) 1 inh inhalation BEDTIME 30 days HPI Comments Details: 62-year-old gentleman here follow-up. He had previous PCI to circumflex and right coronary. Left anterior descending artery was approximately 60-65% stenosis at that time . He presented for f/u and was complaining of shortness of breath. He was taken back for cardiac catheterization which showed patent stents in the right coronary artery as well as left circumflex artery. We performed FFR assessment of his left anterior descending artery which was abnormal. On pullback the gradient improved distal to the area of angiographic stenosis. Angiographically we could not find any stenosis in the area where the gradient actually existed. Also he was complaining of a lot of discomfort at rest which was not explained by the degree of coronary artery disease. We decided to stop and medically treat him and look for other reasons for his dyspnea. He was a former smoker and quit a year ago. He has followed up with pulmonology and has been diagnosed with asthma/COPD. He is on inhalers and is improving clinically. He returns for follow-up today. He has been doing reasonably well. He is able to walk and do activities but when he is going up hill he gets out of breath. He has not exercised significantly due to his breathing in the last year or 2 and probably has significant deconditioning at this 0.2. He is following with pulmonology and has been told that he is stable on the current inhalers. When he presented with acute coronary syndrome he had significant sweating and shortness of breath. He gets shortness of breath and chest tightness off and on which improves with inhalers. His main complaint is fatigue and the fact that he gets tired easily. I have explained to him that this is an unusual symptom for coronary disease. 02/17/2023: He returns for follow-up. He has been doing well. No chest discomfort or exertional shortness of breath. He is getting some breathing issues due to humidity. Taking medications regularly. No bleeding concerns. Overall clinically stable. 06/23/2023: He returns for follow-up. His dyspnea has been stable. He gets sharp left-sided chest pain lasting for few seconds along with right shoulder and leg pain. He has seen Neurology and was told that he has neuropathy. No exertional symptoms reported on follow-up. His last LDL cholesterol was 103. His target is less than 70 and by guidelines less than 55. He has not tolerated more than 10 mg of rosuvastatin. He is already on ezetimibe 10 mg daily. We discussed about PCSK9 but he has needle phobia and will not be able to inject himself. 09/26/23: He is here for follow-up. He is saying breathing is stable. He has started taking bempedoic acid and has been experiencing some aches and pains in the thighs at nighttime. He has not tolerated statins in the past. He has a needle phobia and will do use PCSK9. He has some atypical chest pains, neck pains and body aches. [facility] Medical History History of nasal cavity, middle ear, or sinus malignancy History of ST elevation myocardial infarction (STEMI) Personal history of nicotine dependence Allergic rhinitis Restrictive lung disease Asthma-COPD overlap syndrome Family history of coronary artery disease CAD (coronary artery disease) Stable angina Surgical History History of nasal septoplasty History of tonsillectomy S/P cardiac cath Family History Father CVD (cardiovascular disease) Mother CVD (cardiovascular disease) Maternal Grandfather CVD (cardiovascular disease) Maternal Grandmother CVD (cardiovascular disease) Paternal Grandfather CVD (cardiovascular disease) Paternal Grandmother CVD (cardiovascular disease) Social History Alcohol intake: current Alcohol intake frequency: 0-2 drinks per day Alcohol type: beer Patient Tobacco Use Status: Former Tobacco user Quit Date: 2019 Tobacco use type: Cigarette Years Smoked: (former smoker, onset 26yo, 1ppd x 32yrs, 30pyh, quit 2019) Advance Directives Date on File: 03/10/20 Review of Systems Const Denies chills, Denies fatigue, Denies fever(s), Denies frequent falls, Denies weakness, Denies weight gain and Denies weight loss ENT Denies dizziness Card Denies chest pain, Denies leg edema, Denies lightheadedness, Denies palpitations, Denies dyspnea and Denies dyspnea on exertion Resp Denies cough, Denies dyspnea and Denies dyspnea on exertion GI Denies hematochezia Musc Denies abnormal gait, Denies muscle weakness, Denies numbness, Denies radiating pain into limb and Denies tingling Neuro Denies abnormal gait, Denies dizziness, Denies frequent falls, Denies numbness, Denies tingling and Denies weakness Endo Denies fatigue and Denies palpitations Physical Exam Vital Signs: Last Vital Signs Pulse 88 10/06/23 13:35 BP 140/72 H 10/06/23 13:35 BMI result Body Mass Index 30.5 GENERAL APPEARANCE: in no acute distress, pleasant. NECK: no carotid bruit, no jugular venous distention. SKIN: no suspicious lesions, warm and dry. HEART: no murmurs, regular rate and rhythm. LUNGS: clear to auscultation bilaterally. ABDOMEN: soft, nontender. EXTREMITIES: no edema. PERIPHERAL PULSES: equal. NEUROLOGIC: No gross deficits, AAO X 3 Assessment & Plan Assessment & Plan (1) Stable angina: Code(s): I20.8 - Other forms of angina pectoris Category: Medical (2) CAD (coronary artery disease): Comment: (PCI of LCx & RCA with 60-65 % stenosis of LAD and is on medical therapy) Code(s): I25.10 - Atherosclerotic heart disease of [place] coronary artery without angina pectoris Category: Medical (3) Hyperlipidemia: Code(s): E78.5 - Hyperlipidemia, unspecified Category: Medical Plan Pleasant 63 year gentleman who is here for follow-up. He has known history of coronary artery disease with RCA and circumflex PCI. He has residual disease in the LAD which was medically managed. He is stable from cardiovascular point of view. Most of his dyspnea is related to lung disease and he is closely following with pulmonology. His blood pressure is elevated. I am adding isosorbide mononitrate 30 mg daily. He has not using any Viagra/Cialis. In terms of his hyperlipidemia, he has not tolerated statins in the past. He can not use PCSK9 because he has needle phobia. He is on Zetia 10 mg daily and bempedoic acid. He is getting some muscle aches with bempedoic acid but they appear tolerable. He will get repeat lipid panel in few weeks. If LDL is not at target of less than 70 then we may have to consider referral to lipidology in [place]. Thank you for allowing me to participate in the care of your patient. Please feel free to contact me if you have any questions. Coding Level of Care Code Est Pt Level 4 (83545) Diagnoses Stable angina I20.8 CAD (coronary artery disease) I25.10 Hyperlipidemia E78.5
== END 2023-10-06 14:13 | disposition home or self-care (01) ==
PROVIDERS: PCP Internal Medicine; Visit Provider Internal Medicine Cardiovascular Disease
DX: I25.10 Atherosclerotic heart disease of native coronary artery without angina pectoris (principal); E78.5 Hyperlipidemia, unspecified
CPT/HCPCS: 99214

== ENCOUNTER → 2023-10-06 13:32 | Outpatient (BNVA) | payer MEDICARE, MEDICAID, SELFPAY | PROVIDERS: PCP Internal Medicine; Visit Provider Internal Medicine Cardiovascular Disease | DX: I20.89 Other forms of angina pectoris (principal); I25.10 Atherosclerotic heart disease of native coronary artery without angina pectoris; E78.5 Hyperlipidemia, unspecified | CPT/HCPCS: 99212 ==

== ENCOUNTER 2023-11-11 13:15 | Outpatient (AMB) | payer MEDICARE, MEDICAID, SELFPAY ==
--- NOTE | 2023-11-11 13:24 | A.OFFVIS_ITS ---
Vital Signs 11/11/23 13:25 Height 5 ft 8 in Weight 199 lb 8.293 oz BMI 30.3 BP 122/68 Blood Pressure Location Lt brachial Position Sitting Pulse 72 Pulse Source Pulse Oximeter Pulse Oximetry (%) 96 Oxygen Delivery Method Room Air Intake Visit Reasons: Dyspnea, COPD follow-up Intake Note: pt is here for follow up and states he feels his breathing is better since he moved to new home, minimal phelgm. Medical Office Specialist Required: No Allergies azithromycin Allergy (Unknown, Verified 11/11/23 13:34) Unknown losartan Adverse Reaction (Unknown, Verified 11/11/23 13:34) Unknown Medication List - Last Reconciled 11/11/23 by Heath Vera MD Advair Diskus 250-50 mcg/dose (fluticasone propion-salmeterol) 1 inh inhalation BID NS albuterol sulfate 90 mcg/actuation (Ventolin HFA) 2 puffs inhalation Q4H PRN amlodipine 5 mg PO DAILY aspirin (Adult Low Dose Aspirin) 81 mg PO DAILY bempedoic acid 180 mg PO DAILY clopidogrel (Plavix) 75 mg PO DAILY ezetimibe (Zetia) 10 mg PO DAILY fexofenadine (Radha Allergy) 180 mg PO DAILY PRN fluticasone propionate 50 mcg/actuation 2 sprays intranasal DAILY isosorbide mononitrate ER 30 mg PO DAILY metoprolol succinate ER (Toprol XL) 100 mg PO DAILY nitroglycerin 0.4 mg sublingual Q5M PRN rosuvastatin 10 mg PO DAILY umeclidinium 62.5 mcg/actuation (Incruse Ellipta) 1 inh inhalation BEDTIME 30 days Do you need a note to return to daycare/school/sports/work: No HPI HPI Dyspnea: Details: 63 years old gentleman with longstanding history of allergic rhinitis, asthma/COPD , quit smoking 3 years ago. Comes for follow-up after 6 months. Symptom medically much better since he has moved to his new [facility]. Still continues to use Flonase just off and on and fexofenadine 180 mg daily. Also continues to use Advair as well as Incruse Ellipta on a daily basis. He has only occasional nasal congestion, only occasional bouts of cough, hardly gets short of breath on exertion as long as he uses his inhalers. [facility] Medical History History of nasal cavity, middle ear, or sinus malignancy History of ST elevation myocardial infarction (STEMI) Personal history of nicotine dependence Allergic rhinitis Restrictive lung disease Asthma-COPD overlap syndrome Family history of coronary artery disease CAD (coronary artery disease) Stable angina Surgical History History of nasal septoplasty History of tonsillectomy S/P cardiac cath Family History Father CVD (cardiovascular disease) Mother CVD (cardiovascular disease) Maternal Grandfather CVD (cardiovascular disease) Maternal Grandmother CVD (cardiovascular disease) Paternal Grandfather CVD (cardiovascular disease) Paternal Grandmother CVD (cardiovascular disease) Social History Alcohol intake: current Alcohol intake frequency: 0-2 drinks per day Alcohol type: beer Patient Tobacco Use Status: Former Tobacco user Tobacco use type: Cigarette Years Smoked: (former smoker, onset 26yo, 1ppd x 32yrs, 30pyh, quit 2020) Advance Directives Date on File: 03/10/20 Review of Systems Const All systems reviewed & are unremarkable except as noted in HPI and below Eyes Reports no additional complaints ENT Reports nasal congestion (Controlled) Card Denies chest pain, Denies irregular heart rhythm and Denies leg edema Resp Reports as per HPI GI Reports no additional complaints Reports no additional complaints Musc Reports myalgias Skin/Breast Reports system reviewed and no additional complaints, except as documented Neuro Reports no additional complaints Psych Reports no additional complaints Endo Reports no additional complaints Physical Exam Vital Signs: Last Vital Signs Pulse 72 11/11/23 13:25 BP 122/68 11/11/23 13:25 Pulse Ox 96 11/11/23 13:25 Oxygen Delivery Method Room Air 11/11/23 13:25 BMI result Body Mass Index 30.3 Const General: comfortable, no acute distress, alert and awake Orientation/consciousness: patient oriented x3 HEENT Head: Yes normal to inspection General nose exam: No nasal polyps present and No nasal discharge present Face and sinus: Yes sinuses nontender Mouth: oropharynx normal Throat: Yes posterior oropharynx normal Eyes General: appearance normal, both eyes and all related structures Neck Neck: Yes normal visual inspection, Yes no lymphadenopathy, Yes trachea midline and Yes no JVD Thyroid: Thyroid normal Chest Chest palpation & inspection: normal inspection of the chest, normal palpation of entire chest wall and no tenderness Resp Other: Percussion note is resonant, breath sounds are slightly distant with prolonged expiratory phase. No wheezes rhonchi or crepitations are heard. Cardio Palpation: normal PMI Rate: regular rate Rhythm: regular rhythm Heart sounds: no gallops and no murmurs Peripheral pulses: Peripheral pulses 2+ throughout GI Palpation (GI): Soft to palpation, nontender, No hepatosplenomegaly present and no masses Auscultation: normal bowel sounds Back/Spine/Pelvis Thoracic/Lumbar Spine: thoracic and lumbar spine normal to inspection, thoraco- lumbar ROM limited and thoraco-lumbar spasm Skin General skin exam: no rashes or lesions noted Neuro General: patient oriented x3 and no focal motor deficits Cranial nerves: Yes CN's II-XII intact bilaterally Extrem General: Yes normal to inspection, Yes no clubbing, cyanosis or edema and Yes no calf tenderness Psych Appearance: grossly normal and well kempt Speech and movement: Normal speech and movement present Office Procedures Spirometry Testing Spirometry Comments: Spirometry done in the office, Dr. Vera has the results results scanned to his chart. 82943- Spirometry Results Reviewed Results Reviewed: Spirometry FVC FEV1 FEV1/FVC FEF 25-75 PFT . 2020 59 % 61 % 77 60 % 11/10 66 66 77 65 Improved C/W mild to [place] restrictive pattern., obstructive component is all taken care of. Assessment & Plan Assessment & Plan (1) Asthma-COPD overlap syndrome: Comment: (Former smoker, PFT showed [id number] obstructive airway disorder with excellent response to bronchodilator therapy) Patient claims to be feeling better with the current medical regimen. Code(s): J44.9 - Chronic obstructive pulmonary disease, unspecified Category: Medical Plan: [place] : Continue Advair 250-50 1 INH. bid ( at present he is using only 1 inhalation in the morning, I told him that if he is symptomatic then should go up to b.i.d. ) Continue INCRUSE Ellipta , 1 inhalation daily. And use ProAir 2 puffs Q 4-6 hours only p.r.n.. ( Script renewed ) (2) Allergic rhinitis: Comment: MILD TO MODERATE , chronic , may be the source of mucous in AMs. Seems to be controlled with current meds. Code(s): J30.9 - Allergic rhinitis, unspecified Category: Medical Plan: [place]: Continue using Flonase 2 spray each nostril daily ( but he uses only p.r.n. because with continued usage he gets nasal bleeding ) and may use fexofenadine 180 mg or Claritin 10 mg once a day p.r.n. (3) Personal history of nicotine dependence: Comment: (former smoker, onset 26yo, 1ppd x 32yrs, 30pyh, quit 2019) He is in an [place] [facility] screening program. last LDCT Benign Cat 1 Code(s): Z87.891 - Personal history of nicotine dependence Category: Medical Plan: continue in the program for 2 more years Coding Level of Care Code Est Pt Level 3 (21444) Diagnoses Asthma-COPD overlap syndrome J44.9 Allergic rhinitis J30.9 Personal history of nicotine dependence Z87.891 CPT Codes Spirometry - CPT: 71472- Spirometry ([id number])
[2023-11-11 13:25] VITALS: BP 122/68; PULSE 72; O2SAT 96; BMI 30.3
== END 2023-11-11 13:58 | disposition home or self-care (01) ==
PROVIDERS: PCP Internal Medicine; Referring Provider Internal Medicine; Visit Provider Internal Medicine
DX: J44.9 Chronic obstructive pulmonary disease, unspecified (principal); J30.9 Allergic rhinitis, unspecified; Z87.891 Personal history of nicotine dependence
CPT/HCPCS: 94010; 99213

== ENCOUNTER → 2023-11-11 13:15 | Outpatient (BNVA) | payer MEDICARE, MEDICAID, SELFPAY | PROVIDERS: PCP Internal Medicine; Visit Provider Internal Medicine | DX: J44.9 Chronic obstructive pulmonary disease, unspecified (principal); J30.9 Allergic rhinitis, unspecified; Z87.891 Personal history of nicotine dependence | CPT/HCPCS: 94010; 99212 ==

== ENCOUNTER 2024-05-05 10:08 | Outpatient (AMB) | payer MEDICARE, MEDICAID, SELFPAY ==
[2024-05-05 10:38] VITALS: BP 120/72; PULSE 67; BMI 31.0
--- NOTE | 2024-05-05 10:38 | MHC.OFFVIS ---
Vital Signs 05/05/24 10:38 Height 5 ft 8 in Weight 204 lb 2.369 oz BMI 31.0 BP 120/72 Blood Pressure Location Lt brachial Position Sitting Pulse 67 Pulse Source Monitor Intake Visit Reasons: r/s 02/03 1 year followup w/ekg Intake Note: 1 yr f/up Director Of Quality Improvement Required: No Accompanied by: Self / Same As Patient Allergies azithromycin Allergy (Unknown, Verified 11/11/23 13:34) Unknown losartan Adverse Reaction (Unknown, Verified 11/11/23 13:34) Unknown Medication List - Last Reconciled 05/05/24 by Alex Galarza MD albuterol sulfate 90 mcg/actuation (Ventolin HFA) 2 puffs inhalation Q4H PRN amlodipine 5 mg PO DAILY aspirin (Adult Low Dose Aspirin) 81 mg PO DAILY bempedoic acid 180 mg PO DAILY clopidogrel (Plavix) 75 mg PO DAILY ezetimibe (Zetia) 10 mg PO DAILY fexofenadine (Radha Allergy) 180 mg PO DAILY PRN fluticasone furoate-vilanterol 100-25 mcg/dose (Breo Ellipta) 1 inh inhalation DAILY 30 days fluticasone propion-salmeterol 250-50 mcg/dose (Advair Diskus) 1 inh inhalation BID fluticasone propionate 50 mcg/actuation 2 sprays intranasal DAILY isosorbide mononitrate ER 30 mg PO DAILY metoprolol succinate ER (Toprol XL) 100 mg PO DAILY nitroglycerin 0.4 mg sublingual Q5M PRN rosuvastatin 10 mg PO DAILY umeclidinium 62.5 mcg/actuation (Incruse Ellipta) 1 inh inhalation BEDTIME HPI Comments Details: 63-year-old gentleman here follow-up. He had previous PCI to circumflex and right coronary. Left anterior descending artery was approximately 60-65% stenosis at that time . He presented for f/u and was complaining of shortness of breath. He was taken back for cardiac catheterization which showed patent stents in the right coronary artery as well as left circumflex artery. We performed FFR assessment of his left anterior descending artery which was abnormal. On pullback the gradient improved distal to the area of angiographic stenosis. Angiographically we could not find any stenosis in the area where the gradient actually existed. Also he was complaining of a lot of discomfort at rest which was not explained by the degree of coronary artery disease. We decided to stop and medically treat him and look for other reasons for his dyspnea. He was a former smoker and quit a year ago. He has followed up with pulmonology and has been diagnosed with asthma/COPD. He is on inhalers and is improving clinically. He returns for follow-up today. He has been doing reasonably well. He is able to walk and do activities but when he is going up hill he gets out of breath. He has not exercised significantly due to his breathing in the last year or 2 and probably has significant deconditioning at this 0.2. He is following with pulmonology and has been told that he is stable on the current inhalers. When he presented with acute coronary syndrome he had significant sweating and shortness of breath. He gets shortness of breath and chest tightness off and on which improves with inhalers. His main complaint is fatigue and the fact that he gets tired easily. I have explained to him that this is an unusual symptom for coronary disease. 02/17/2023: He returns for follow-up. He has been doing well. No chest discomfort or exertional shortness of breath. He is getting some breathing issues due to humidity. Taking medications regularly. No bleeding concerns. Overall clinically stable. 06/23/2023: He returns for follow-up. His dyspnea has been stable. He gets sharp left-sided chest pain lasting for few seconds along with right shoulder and leg pain. He has seen Neurology and was told that he has neuropathy. No exertional symptoms reported on follow-up. His last LDL cholesterol was 103. His target is less than 70 and by guidelines less than 55. He has not tolerated more than 10 mg of rosuvastatin. He is already on ezetimibe 10 mg daily. We discussed about PCSK9 but he has needle phobia and will not be able to inject himself. 09/26/23: He is here for follow-up. He is saying breathing is stable. He has started taking bempedoic acid and has been experiencing some aches and pains in the thighs at nighttime. He has not tolerated statins in the past. He has a needle phobia and will do use PCSK9. He has some atypical chest pains, neck pains and body aches. 05/05/2024: He returns for follow-up. Dyspnea is stable. No chest pain. No bleeding concerns currently. Taking medications regularly. Tolerating the statins at the current dose. [facility] Medical History (Updated 04/27/24 @ 11:40 by Nory Valdovinos PA-C) History of nasal cavity, middle ear, or sinus malignancy History of ST elevation myocardial infarction (STEMI) Personal history of nicotine dependence Allergic rhinitis Restrictive lung disease Asthma-COPD overlap syndrome Family history of coronary artery disease CAD (coronary artery disease) Stable angina Surgical History History of nasal septoplasty History of tonsillectomy S/P cardiac cath Family History Father CVD (cardiovascular disease) Mother CVD (cardiovascular disease) Maternal Grandfather CVD (cardiovascular disease) Maternal Grandmother CVD (cardiovascular disease) Paternal Grandfather CVD (cardiovascular disease) Paternal Grandmother CVD (cardiovascular disease) Social History Alcohol intake: current Alcohol intake frequency: 0-2 drinks per day Alcohol type: beer Patient Tobacco Use Status: Former Tobacco user Tobacco use type: Cigarette Years Smoked: (former smoker, onset 26yo, 1ppd x 32yrs, 30pyh, quit 2019) Advance Directives Date on File: 03/10/20 Review of Systems Const Denies chills, Denies fatigue, Denies fever(s), Denies frequent falls, Denies weakness, Denies weight gain and Denies weight loss ENT Denies dizziness Card Denies chest pain, Denies leg edema, Denies lightheadedness, Denies palpitations, Denies dyspnea and Denies dyspnea on exertion Resp Denies cough, Denies dyspnea and Denies dyspnea on exertion GI Denies hematochezia Musc Denies abnormal gait, Denies muscle weakness, Denies numbness, Denies radiating pain into limb and Denies tingling Neuro Denies abnormal gait, Denies dizziness, Denies frequent falls, Denies numbness, Denies tingling and Denies weakness Endo Denies fatigue and Denies palpitations Physical Exam Vital Signs: Last Vital Signs Pulse 67 05/05/24 10:38 BP 120/72 05/05/24 10:38 BMI result Body Mass Index 31.0 GENERAL APPEARANCE: in no acute distress, pleasant. NECK: no carotid bruit, no jugular venous distention. SKIN: no suspicious lesions, warm and dry. HEART: no murmurs, regular rate and rhythm. LUNGS: clear to auscultation bilaterally. ABDOMEN: soft, nontender. EXTREMITIES: no edema. PERIPHERAL PULSES: equal. NEUROLOGIC: No gross deficits, AAO X 3 Office Procedures EKG Details: Sinus rhythm 67 beats per minute, normal axis, inferior infarct, poor R-wave progression and can not rule out anterior infarct, QTC 416 milliseconds. [id number], Complete Assessment & Plan Assessment & Plan (1) Stable angina: Code(s): I20.8 - Other forms of angina pectoris Category: Medical (2) CAD (coronary artery disease): Comment: (PCI of LCx & RCA with 60-65 % stenosis of LAD and is on medical therapy) Code(s): I25.10 - Atherosclerotic heart disease of [place] coronary artery without angina pectoris Category: Medical (3) Hyperlipidemia: Code(s): E78.5 - Hyperlipidemia, unspecified Category: Medical Plan Pleasant 63 year gentleman who is here for follow-up. He has known history of coronary artery disease with RCA and circumflex PCI. He has residual disease in the LAD which was medically managed. He is stable from cardiovascular point of view. Most of his dyspnea is related to lung disease and he is closely following with pulmonology. Blood pressure is well controlled after addition of isosorbide mononitrate. He has not using any Viagra/Cialis. He had some issues with high intensity statin therapy in the past. He is currently taking bempedoic acid, Crestor 10 mg and zetia. LDL target is less than 70. He should have fasting lipid panel at least once a year. Thank you for allowing me to participate in the care of your patient. Please feel free to contact me if you have any questions. Coding Level of Care Code Est Pt Level 4 (58219) Diagnoses Stable angina I20.8 CAD (coronary artery disease) I25.10 Hyperlipidemia E78.5 CPT Codes EKG - CPT: 91225-[id number], Complete ([id number])
== END 2024-05-05 11:27 | disposition home or self-care (01) ==
PROVIDERS: PCP Internal Medicine; Visit Provider Internal Medicine Cardiovascular Disease
DX: I25.118 Atherosclerotic heart disease of native coronary artery with other forms of angina pectoris (principal); E78.5 Hyperlipidemia, unspecified; R94.31 Abnormal electrocardiogram [ECG] [EKG]
CPT/HCPCS: 93010; 99214

== ENCOUNTER → 2024-05-05 10:08 | Outpatient (BNVA) | payer MEDICARE, MEDICAID, SELFPAY | PROVIDERS: PCP Internal Medicine; Visit Provider Internal Medicine Cardiovascular Disease | DX: I20.89 Other forms of angina pectoris (principal); I25.10 Atherosclerotic heart disease of native coronary artery without angina pectoris; E78.5 Hyperlipidemia, unspecified; R94.31 Abnormal electrocardiogram [ECG] [EKG] | CPT/HCPCS: 93005; 99212 ==

== ENCOUNTER 2024-05-13 13:10 | Outpatient (AMB) | payer MEDICARE, MEDICAID, SELFPAY ==
[2024-05-13 13:16] VITALS: BP 124/78; PULSE 70; O2SAT 94; BMI 31.2
--- NOTE | 2024-05-13 13:16 | MHC.OFFVIS ---
Vital Signs 05/13/24 13:16 Height 5 ft 8 in Weight 205 lb 0.478 oz BMI 31.2 BP 124/78 Blood Pressure Location Lt brachial Position Sitting Pulse 70 Pulse Source Pulse Oximeter Pulse Oximetry (%) 94 Oxygen Delivery Method Room Air Intake Visit Reasons: Dyspnea Intake Note: pt is here for follow up and states he is okay, he has his moments,stairs and hills are not good, Sider Required: No Allergies azithromycin Allergy (Unknown, Verified 05/13/24 13:40) Unknown losartan Adverse Reaction (Unknown, Verified 05/13/24 13:40) Unknown Medication List - Last Reconciled 05/13/24 by Heath Vera MD albuterol sulfate 90 mcg/actuation (Ventolin HFA) 2 puffs inhalation Q4H PRN amlodipine 5 mg PO DAILY aspirin (Adult Low Dose Aspirin) 81 mg PO DAILY bempedoic acid 180 mg PO DAILY clopidogrel (Plavix) 75 mg PO DAILY ezetimibe (Zetia) 10 mg PO DAILY fexofenadine (Radha Allergy) 180 mg PO DAILY PRN fluticasone furoate-vilanterol 100-25 mcg/dose (Breo Ellipta) 1 inh inhalation DAILY 30 days fluticasone propionate 50 mcg/actuation 2 sprays intranasal DAILY isosorbide mononitrate ER 30 mg PO DAILY metoprolol succinate ER (Toprol XL) 100 mg PO DAILY nitroglycerin 0.4 mg sublingual Q5M PRN rosuvastatin 10 mg PO DAILY umeclidinium 62.5 mcg/actuation (Incruse Ellipta) 1 inh inhalation BEDTIME PRN Do you need a note to return to daycare/school/sports/work: No HPI HPI Dyspnea: Details: THIS 63 YEARS OLD GENTLEMAN IS A CASE OF BRONCHIAL ASTHMA/ALLERGIC RHINITIS. QUIT SMOKING MORE THAN 5 YEARS AGO. HE HAS MILD INTERMITTENT COUGH AND WHEEZING. HAS MILD SHORTNESS OF BREATH WHEN HE STARTS A PHYSICAL WORK SUCH CLIMBING STAIRS OR WALKING UP HILL. BUT IN A FEW MINUTES HE IS ABLE TO DO THE PHYSICAL WORK AT HIS NORMAL SPEED WITHOUT SHORTNESS OF BREATH. HE USES BREO 100-25 ONLY ONCE A DAY. HE DOES HAVE INCRUSE ELLIPTA AND USES IT ONLY ONCE IN A WHILE WHEN SYMPTOMS GET SOMEWHAT WORSE. NASAL CONGESTION IS ALSO OFF AND ON, EASILY CONTROLLED WITH P.R.N. USE OF FLONASE, [facility] Medical History History of nasal cavity, middle ear, or sinus malignancy History of ST elevation myocardial infarction (STEMI) Personal history of nicotine dependence Allergic rhinitis Restrictive lung disease Asthma-COPD overlap syndrome Family history of coronary artery disease CAD (coronary artery disease) Stable angina Surgical History History of nasal septoplasty History of tonsillectomy S/P cardiac cath Family History Father CVD (cardiovascular disease) Mother CVD (cardiovascular disease) Maternal Grandfather CVD (cardiovascular disease) Maternal Grandmother CVD (cardiovascular disease) Paternal Grandfather CVD (cardiovascular disease) Paternal Grandmother CVD (cardiovascular disease) Social History Alcohol intake: current Alcohol intake frequency: 0-2 drinks per day Alcohol type: beer Patient Tobacco Use Status: Former Tobacco user Tobacco use type: Cigarette Years Smoked: (former smoker, onset 26yo, 1ppd x 32yrs, 30pyh, quit 2020) Advance Directives Date on File: 03/10/20 Review of Systems Const All systems reviewed & are unremarkable except as noted in HPI and below Eyes Reports no additional complaints ENT Reports nasal congestion (Controlled) Card Denies chest pain, Denies irregular heart rhythm and Denies leg edema Resp Reports as per HPI GI Reports no additional complaints Reports no additional complaints Musc Reports myalgias Skin/Breast Reports system reviewed and no additional complaints, except as documented Neuro Reports no additional complaints Psych Reports no additional complaints Endo Reports no additional complaints Physical Exam Vital Signs: Last Vital Signs Pulse 70 05/13/24 13:16 BP 124/78 05/13/24 13:16 Pulse Ox 94 05/13/24 13:16 Oxygen Delivery Method Room Air 05/13/24 13:16 BMI result Body Mass Index 31.2 Const General: comfortable, no acute distress, alert and awake Orientation/consciousness: patient oriented x3 HEENT Head: Yes normal to inspection General nose exam: No nasal polyps present and No nasal discharge present Face and sinus: Yes sinuses nontender Mouth: oropharynx normal Throat: Yes posterior oropharynx normal Eyes General: appearance normal, both eyes and all related structures Neck Neck: Yes normal visual inspection, Yes no lymphadenopathy, Yes trachea midline and Yes no JVD Thyroid: Thyroid normal Chest Chest palpation & inspection: normal inspection of the chest, normal palpation of entire chest wall and no tenderness Resp Other: Percussion note is resonant, breath sounds are slightly distant with prolonged expiratory phase. No wheezes rhonchi or crepitations are heard. Cardio Palpation: normal PMI Rate: regular rate Rhythm: regular rhythm Heart sounds: no gallops and no murmurs Peripheral pulses: Peripheral pulses 2+ throughout GI Palpation (GI): Soft to palpation, nontender, No hepatosplenomegaly present and no masses Auscultation: normal bowel sounds Back/Spine/Pelvis Thoracic/Lumbar Spine: thoracic and lumbar spine normal to inspection, thoraco-lumbar ROM limited and thoraco-lumbar spasm Skin General skin exam: no rashes or lesions noted Neuro General: patient oriented x3 and no focal motor deficits Cranial nerves: Yes CN's II-XII intact bilaterally Extrem General: Yes normal to inspection, Yes no clubbing, cyanosis or edema and Yes no calf tenderness Psych Appearance: grossly normal and well kempt Speech and movement: Normal speech and movement present Assessment & Plan Assessment & Plan (1) Asthma-COPD overlap syndrome: Comment: (Former smoker, PFT showed [id number] obstructive airway disorder with excellent response to bronchodilator therapy) Patient claims to be feeling better with the current medical regimen. Code(s): J44.9 - Chronic obstructive pulmonary disease, unspecified Category: Medical Plan: BREO 100-25 1 INHALATION DAILY. INCRUSE ELLIPTA 1 INHALATION DAILY BUT TAKE ONLY P.R.N. WHEN SYMPTOMS GET WORSE WITH COUGH AND SHORTNESS OF BREATH. ALBUTEROL HFA 2 PUFFS Q 6 HOURS P.R.N.. (2) Restrictive lung disease: Comment: PFT showed moderately severe restrictive pulmonary disorder. He does not expand his lower part of the lungs, well . There is elevation of Rt. hemidiaphragm , may be chronic , and partly contributing to restrictive lung disease. Code(s): J98.4 - Other disorders of lung Category: Medical Plan: [place] : He is instructed to do deep breathing exercises at least 10 times per session,, and at least 3 sessions a day. In between if he feels little anxious and has subjective feeling of shortness of breath, relax and do deep breathing exercises. (3) PATRICK (dyspnea on exertion): Comment: Dyspnea on exertion is due to combination of, moderately severe restrictive pulmonary disorder, and obstructive airway disorder. And coronary artery disease with some degree of LAD obstructive disease. I advised him to keep on walking but avoid any sudden walking on the incline or climbing stairs. Code(s): R06.00 - Dyspnea, unspecified Category: Medical Plan: ADVISED TO START DOING ANY PHYSICAL WORK LIKE WALKING UP AND DOWN STAIRS OR WALKING IN THE MALL, SLOWLY AN INCREASE THE PACE GRADUALLY OVER 5-10 MINUTES . KEEP ON DOING BREATHING EXERCISES. (4) Allergic rhinitis: Comment: MILD TO MODERATE , chronic , may be the source of mucous in AMs. Seems to be controlled with current meds. Code(s): J30.9 - Allergic rhinitis, unspecified Category: Medical Plan: USE FLONASE-50 2 SPRAYS IN EACH NOSTRIL ONCE A DAY BUT ONLY P.R.N.. Medications: Changed From umeclidinium 62.5 mcg/actuation (Incruse Ellipta) 1 inh inhalation BEDTIME PRN To umeclidinium 62.5 mcg/actuation (Incruse Ellipta) 1 inh inhalation BEDTIME 30 days 30 ea 3RF Coding Level of Care Code Est Pt Level 3 (18189) Diagnoses Asthma-COPD overlap syndrome J44.9 Restrictive lung disease J98.4 PATRICK (dyspnea on exertion) R06.00 Allergic rhinitis J30.9
== END 2024-05-13 13:40 | disposition home or self-care (01) ==
PROVIDERS: PCP Internal Medicine; Visit Provider Internal Medicine
DX: J44.9 Chronic obstructive pulmonary disease, unspecified (principal); J98.4 Other disorders of lung; R06.00 Dyspnea, unspecified; J30.9 Allergic rhinitis, unspecified
CPT/HCPCS: 99213

== ENCOUNTER → 2024-05-13 13:10 | Outpatient (BNVA) | payer MEDICARE, MEDICAID, SELFPAY | PROVIDERS: PCP Internal Medicine; Visit Provider Internal Medicine | DX: J44.89 Other specified chronic obstructive pulmonary disease (principal); J98.4 Other disorders of lung; R06.00 Dyspnea, unspecified; J30.9 Allergic rhinitis, unspecified | CPT/HCPCS: 99212 ==

== ENCOUNTER 2024-08-11 10:06 | Outpatient (AMB) | payer MEDICARE, MEDICAID, SELFPAY ==
--- NOTE | 2024-08-11 10:30 | MHC.OFFVIS ---
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 Accompanied by: Self / Same As Patient Allergies azithromycin Allergy (Unknown, Verified 05/13/24 13:40) Unknown losartan Adverse Reaction (Unknown, Verified 05/13/24 13:40) Unknown Medication List - Last Reconciled 08/11/24 by Alex Galarza MD albuterol sulfate 90 mcg/actuation (Ventolin HFA) 2 puffs inhalation Q4H PRN amlodipine 5 mg PO DAILY aspirin (Adult Low Dose Aspirin) 81 mg PO DAILY bempedoic acid 180 mg PO DAILY clopidogrel (Plavix) 75 mg PO DAILY ezetimibe (Zetia) 10 mg PO DAILY fexofenadine (Radha Allergy) 180 mg PO DAILY PRN fluticasone furoate-vilanterol 100-25 mcg/dose (Breo Ellipta) 1 inh inhalation DAILY 30 days fluticasone propionate 50 mcg/actuation 2 sprays intranasal DAILY isosorbide mononitrate ER 30 mg PO DAILY metoprolol succinate ER (Toprol XL) 100 mg PO DAILY nitroglycerin 0.4 mg sublingual Q5M PRN rosuvastatin 10 mg PO DAILY umeclidinium 62.5 mcg/actuation (Incruse Ellipta) 1 inh inhalation BEDTIME 30 days HPI Comments Details: 64-year-old gentleman here follow-up. He had previous PCI to circumflex and right coronary. Left anterior descending artery was approximately 60-65% stenosis at that time . He presented for f/u and was complaining of shortness of breath. He was taken back for cardiac catheterization which showed patent stents in the right coronary artery as well as left circumflex artery. We performed FFR assessment of his left anterior descending artery which was abnormal. On pullback the gradient improved distal to the area of angiographic stenosis. Angiographically we could not find any stenosis in the area where the gradient actually existed. Also he was complaining of a lot of discomfort at rest which was not explained by the degree of coronary artery disease. We decided to stop and medically treat him and look for other reasons for his dyspnea. He was a former smoker and quit a year ago. He has followed up with pulmonology and has been diagnosed with asthma/COPD. He is on inhalers and is improving clinically. He returns for follow-up today. He has been doing reasonably well. He is able to walk and do activities but when he is going up hill he gets out of breath. He has not exercised significantly due to his breathing in the last year or 2 and probably has significant deconditioning at this 0.2. He is following with pulmonology and has been told that he is stable on the current inhalers. When he presented with acute coronary syndrome he had significant sweating and shortness of breath. He gets shortness of breath and chest tightness off and on which improves with inhalers. His main complaint is fatigue and the fact that he gets tired easily. I have explained to him that this is an unusual symptom for coronary disease. 02/17/2023: He returns for follow-up. He has been doing well. No chest discomfort or exertional shortness of breath. He is getting some breathing issues due to humidity. Taking medications regularly. No bleeding concerns. Overall clinically stable. 06/23/2023: He returns for follow-up. His dyspnea has been stable. He gets sharp left-sided chest pain lasting for few seconds along with right shoulder and leg pain. He has seen Neurology and was told that he has neuropathy. No exertional symptoms reported on follow-up. His last LDL cholesterol was 103. His target is less than 70 and by guidelines less than 55. He has not tolerated more than 10 mg of rosuvastatin. He is already on ezetimibe 10 mg daily. We discussed about PCSK9 but he has needle phobia and will not be able to inject himself. 09/26/23: He is here for follow-up. He is saying breathing is stable. He has started taking bempedoic acid and has been experiencing some aches and pains in the thighs at nighttime. He has not tolerated statins in the past. He has a needle phobia and will do use PCSK9. He has some atypical chest pains, neck pains and body aches. 05/05/2024: He returns for follow-up. Dyspnea is stable. No chest pain. No bleeding concerns currently. Taking medications regularly. Tolerating the statins at the current dose. 08/11/2024: He is here for follow-up. No chest discomfort. He has dyspnea on exertion which is stable and improves with inhalers. Blood pressure is well controlled. He has some coughing spells and he is asking whether that is due to COPD or allergies. I have explained to him that either can cause cough and he should look at his environment if there is any triggers for allergies. [facility] Medical History History of nasal cavity, middle ear, or sinus malignancy History of ST elevation myocardial infarction (STEMI) Personal history of nicotine dependence Allergic rhinitis Restrictive lung disease Asthma-COPD overlap syndrome Family history of coronary artery disease CAD (coronary artery disease) Stable angina Surgical History History of nasal septoplasty History of tonsillectomy S/P cardiac cath Family History Father CVD (cardiovascular disease) Mother CVD (cardiovascular disease) Maternal Grandfather CVD (cardiovascular disease) Maternal Grandmother CVD (cardiovascular disease) Paternal Grandfather CVD (cardiovascular disease) Paternal Grandmother CVD (cardiovascular disease) Social History Alcohol intake: current Alcohol intake frequency: 0-2 drinks per day Alcohol type: beer Patient Tobacco Use Status: Former Tobacco user Tobacco use type: Cigarette Years Smoked: (former smoker, onset 26yo, 1ppd x 32yrs, 30pyh, quit 2019) Advance Directives Date on File: 03/10/20 Review of Systems Const Denies chills, Denies fatigue, Denies fever(s), Denies frequent falls, Denies weakness, Denies weight gain and Denies weight loss ENT Denies dizziness Card Denies chest pain, Denies leg edema, Denies lightheadedness, Denies palpitations, Denies dyspnea and Denies dyspnea on exertion Resp Denies cough, Denies dyspnea and Denies dyspnea on exertion GI Denies hematochezia Musc Denies abnormal gait, Denies muscle weakness, Denies numbness, Denies radiating pain into limb and Denies tingling Neuro Denies abnormal gait, Denies dizziness, Denies frequent falls, Denies numbness, Denies tingling and Denies weakness Endo Denies fatigue and Denies palpitations Physical Exam Vital Signs: Last Vital Signs Pulse 87 08/11/24 10:31 BP 130/70 08/11/24 10:31 BMI result Body Mass Index 31.4 GENERAL APPEARANCE: in no acute distress, pleasant. NECK: no carotid bruit, no jugular venous distention. SKIN: no suspicious lesions, warm and dry. HEART: no murmurs, regular rate and rhythm. LUNGS: clear to auscultation bilaterally. ABDOMEN: soft, nontender. EXTREMITIES: no edema. PERIPHERAL PULSES: equal. NEUROLOGIC: No gross deficits, AAO X 3 Assessment & Plan Assessment & Plan (1) Stable angina: Code(s): I20.8 - Other forms of angina pectoris Category: Medical (2) CAD (coronary artery disease): Comment: (PCI of LCx & RCA with 60-65 % stenosis of LAD and is on medical therapy) Code(s): I25.10 - Atherosclerotic heart disease of [place] coronary artery without angina pectoris Category: Medical (3) Hyperlipidemia: Code(s): E78.5 - Hyperlipidemia, unspecified Category: Medical Plan Pleasant 64 year gentleman who is here for follow-up. He has known history of coronary artery disease with RCA and circumflex PCI. He has residual disease in the LAD which was medically managed. He is stable from cardiovascular point of view. Most of his dyspnea is related to lung disease and he is closely following with pulmonology. His symptoms improved with inhalers. Blood pressure is well controlled after addition of isosorbide mononitrate. He has not been using any Viagra/Cialis. Tolerating medications well. I have explained to Harvinder that if his dyspnea does not respond to inhalers or if there is sudden change in breathing then we may have to consider diagnostic angiography again. He understands this and will report to us. Follow up in 3 months. Thank you for allowing me to participate in the care of your patient. Please feel free to contact me if you have any questions. Coding Level of Care Code Est Pt Level 4 (20028) Diagnoses Stable angina I20.8 CAD (coronary artery disease) I25.10 Hyperlipidemia E78.5
[2024-08-11 10:31] VITALS: BP 130/70; PULSE 87; BMI 31.4
== END 2024-08-11 11:05 | disposition home or self-care (01) ==
PROVIDERS: PCP Internal Medicine; Visit Provider Internal Medicine Cardiovascular Disease
DX: I25.118 Atherosclerotic heart disease of native coronary artery with other forms of angina pectoris (principal); E78.5 Hyperlipidemia, unspecified
CPT/HCPCS: 99214

== ENCOUNTER → 2024-08-11 10:06 | Outpatient (BNVA) | payer MEDICARE, MEDICAID, SELFPAY | PROVIDERS: PCP Internal Medicine; Visit Provider Internal Medicine Cardiovascular Disease | DX: I25.10 Atherosclerotic heart disease of native coronary artery without angina pectoris (principal); R06.00 Dyspnea, unspecified; E78.5 Hyperlipidemia, unspecified; Z87.891 Personal history of nicotine dependence | CPT/HCPCS: 99212 ==

== ENCOUNTER 2024-11-10 10:37 | Outpatient (AMB) | payer MEDICARE, MEDICAID, SELFPAY ==
--- NOTE | 2024-11-10 11:01 | MHC.OFFVIS ---
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 Accompanied by: Self / Same As Patient Allergies azithromycin Allergy (Unknown, Verified 05/13/24 13:40) Unknown losartan Adverse Reaction (Unknown, Verified 05/13/24 13:40) Unknown Medication List - Last Reconciled 11/10/24 by Alex Galarza MD albuterol sulfate 90 mcg/actuation (Ventolin HFA) 2 puffs inhalation Q4H PRN amlodipine 5 mg PO DAILY aspirin (Adult Low Dose Aspirin) 81 mg PO DAILY bempedoic acid 180 mg PO DAILY clopidogrel (Plavix) 75 mg PO DAILY ezetimibe (Zetia) 10 mg PO DAILY fexofenadine (Radha Allergy) 180 mg PO DAILY PRN fluticasone furoate-vilanterol 100-25 mcg/dose (Breo Ellipta) 1 inh inhalation DAILY 30 days fluticasone propionate 50 mcg/actuation 2 sprays intranasal DAILY isosorbide mononitrate ER 30 mg PO DAILY metoprolol succinate ER (Toprol XL) 100 mg PO DAILY nitroglycerin 0.4 mg sublingual Q5M PRN rosuvastatin 10 mg PO DAILY umeclidinium 62.5 mcg/actuation (Incruse Ellipta) 1 inh inhalation BEDTIME 30 days HPI Comments Details: 64-year-old gentleman here follow-up. He had previous PCI to circumflex and right coronary. Left anterior descending artery was approximately 60-65% stenosis at that time . He presented for f/u and was complaining of shortness of breath. He was taken back for cardiac catheterization which showed patent stents in the right coronary artery as well as left circumflex artery. We performed FFR assessment of his left anterior descending artery which was abnormal. On pullback the gradient improved distal to the area of angiographic stenosis. Angiographically we could not find any stenosis in the area where the gradient actually existed. Also he was complaining of a lot of discomfort at rest which was not explained by the degree of coronary artery disease. We decided to stop and medically treat him and look for other reasons for his dyspnea. He was a former smoker and quit a year ago. He has followed up with pulmonology and has been diagnosed with asthma/COPD. He is on inhalers and is improving clinically. He returns for follow-up today. He has been doing reasonably well. He is able to walk and do activities but when he is going up hill he gets out of breath. He has not exercised significantly due to his breathing in the last year or 2 and probably has significant deconditioning at this 0.2. He is following with pulmonology and has been told that he is stable on the current inhalers. When he presented with acute coronary syndrome he had significant sweating and shortness of breath. He gets shortness of breath and chest tightness off and on which improves with inhalers. His main complaint is fatigue and the fact that he gets tired easily. I have explained to him that this is an unusual symptom for coronary disease. 02/17/2023: He returns for follow-up. He has been doing well. No chest discomfort or exertional shortness of breath. He is getting some breathing issues due to humidity. Taking medications regularly. No bleeding concerns. Overall clinically stable. 06/23/2023: He returns for follow-up. His dyspnea has been stable. He gets sharp left-sided chest pain lasting for few seconds along with right shoulder and leg pain. He has seen Neurology and was told that he has neuropathy. No exertional symptoms reported on follow-up. His last LDL cholesterol was 103. His target is less than 70 and by guidelines less than 55. He has not tolerated more than 10 mg of rosuvastatin. He is already on ezetimibe 10 mg daily. We discussed about PCSK9 but he has needle phobia and will not be able to inject himself. 09/26/23: He is here for follow-up. He is saying breathing is stable. He has started taking bempedoic acid and has been experiencing some aches and pains in the thighs at nighttime. He has not tolerated statins in the past. He has a needle phobia and will do use PCSK9. He has some atypical chest pains, neck pains and body aches. 05/05/2024: He returns for follow-up. Dyspnea is stable. No chest pain. No bleeding concerns currently. Taking medications regularly. Tolerating the statins at the current dose. 08/11/2024: He is here for follow-up. No chest discomfort. He has dyspnea on exertion which is stable and improves with inhalers. Blood pressure is well controlled. He has some coughing spells and he is asking whether that is due to COPD or allergies. I have explained to him that either can cause cough and he should look at his environment if there is any triggers for allergies. 11/10/2024: He is here for follow-up. He has been getting some shortness of breath and coughing since high pollen counts. No chest discomfort. [facility] Medical History History of nasal cavity, middle ear, or sinus malignancy History of ST elevation myocardial infarction (STEMI) Personal history of nicotine dependence Allergic rhinitis Restrictive lung disease Asthma-COPD overlap syndrome Family history of coronary artery disease CAD (coronary artery disease) Stable angina Surgical History History of nasal septoplasty History of tonsillectomy S/P cardiac cath Family History Father CVD (cardiovascular disease) Mother CVD (cardiovascular disease) Maternal Grandfather CVD (cardiovascular disease) Maternal Grandmother CVD (cardiovascular disease) Paternal Grandfather CVD (cardiovascular disease) Paternal Grandmother CVD (cardiovascular disease) Social History Alcohol intake: current Alcohol intake frequency: 0-2 drinks per day Alcohol type: beer Patient Tobacco Use Status: Former Tobacco user Tobacco use type: Cigarette Years Smoked: (former smoker, onset 26yo, 1ppd x 32yrs, 30pyh, quit 2019) Advance Directives Date on File: 03/10/20 Review of Systems Const Denies chills, Denies fatigue, Denies fever(s), Denies frequent falls, Denies weakness, Denies weight gain and Denies weight loss ENT Denies dizziness Card Denies chest pain, Denies leg edema, Denies lightheadedness, Denies palpitations, Denies dyspnea and Denies dyspnea on exertion Resp Denies cough, Denies dyspnea and Denies dyspnea on exertion GI Denies hematochezia Musc Denies abnormal gait, Denies muscle weakness, Denies numbness, Denies radiating pain into limb and Denies tingling Neuro Denies abnormal gait, Denies dizziness, Denies frequent falls, Denies numbness, Denies tingling and Denies weakness Endo Denies fatigue and Denies palpitations Physical Exam Vital Signs: Last Vital Signs Pulse 79 11/10/24 11:03 BP 120/70 11/10/24 11:03 BMI result Body Mass Index 30.2 GENERAL APPEARANCE: in no acute distress, pleasant. NECK: no carotid bruit, no jugular venous distention. SKIN: no suspicious lesions, warm and dry. HEART: no murmurs, regular rate and rhythm. LUNGS: clear to auscultation bilaterally. ABDOMEN: soft, nontender. EXTREMITIES: no edema. PERIPHERAL PULSES: equal. NEUROLOGIC: No gross deficits, AAO X 3 Assessment & Plan Assessment & Plan (1) Stable angina: Code(s): I20.8 - Other forms of angina pectoris Category: Medical (2) Hyperlipidemia: Code(s): E78.5 - Hyperlipidemia, unspecified Category: Medical Plan [age] year gentleman who is here for follow-up. He has known history of coronary disease with previous RCA and circumflex PCI. He has residual disease in LAD which is medically managed at this stage. He has hyperlipidemia and has not been able to tolerate high dose statins. He is on rosuvastatin 10 mg along with ezetimibe and bempedoic acid. He had a fasting lipid panel done in October of 2024 showing total cholesterol 146, triglycerides 103, HDL 49, non HDL 97, direct low density lipoprotein 74, VLDL 19. I think we can continue same medications for now. We discussed about his dyspnea which is a challenging symptoms because of lung disease and underlying coronary disease. Currently his shortness of breath appears to be related to change in weather and high pollen counts and is associated with coughing. He will report to us if there is any change in his symptomatology and we can decide whether we need to do any further workup at that stage. Follow-up in 4 months. Thank you for allowing me to participate in the care of your patient. Please feel free to contact me if you have any questions. Coding Level of Care Code Est Pt Level 4 (89897) Diagnoses Stable angina I20.8 Hyperlipidemia E78.5
[2024-11-10 11:03] VITALS: BP 120/70; PULSE 79; BMI 30.2
== END 2024-11-10 11:27 | disposition home or self-care (01) ==
LOC: HO.HCS 10:38
PROVIDERS: PCP Internal Medicine; Visit Provider Internal Medicine Cardiovascular Disease
DX: I20.89 Other forms of angina pectoris (principal); E78.5 Hyperlipidemia, unspecified
CPT/HCPCS: 99214

== ENCOUNTER → 2024-11-10 10:37 | Outpatient (BNVA) | payer MEDICARE, MEDICAID, SELFPAY | PROVIDERS: PCP Internal Medicine; Visit Provider Internal Medicine Cardiovascular Disease | DX: I20.89 Other forms of angina pectoris (principal); E78.5 Hyperlipidemia, unspecified | CPT/HCPCS: 99212 ==

== ENCOUNTER 2024-11-18 13:15 | Outpatient (AMB) | payer MEDICARE, MEDICAID, SELFPAY ==
--- NOTE | 2024-11-18 13:21 | A.OFFVIS_ITS ---
Vital Signs 11/18/24 13:22 Height 5 ft 8 in Weight 202 lb 13.204 oz BMI 30.8 BP 122/72 Blood Pressure Location Lt brachial Position Sitting Pulse 74 Pulse Source Pulse Oximeter Pulse Oximetry (%) 93 Oxygen Delivery Method Room Air Intake Visit Reasons: Dyspnea Intake Note: pt is here for follow up and he states his breathing is good. 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 Allergies azithromycin Allergy (Unknown, Verified 11/18/24 13:46) Unknown losartan Adverse Reaction (Unknown, Verified 11/18/24 13:46) Unknown Medication List - Last Reconciled 11/18/24 by Heath Vera MD albuterol sulfate 90 mcg/actuation (Ventolin HFA) 2 puffs inhalation Q4H PRN amlodipine 5 mg PO DAILY aspirin (Adult Low Dose Aspirin) 81 mg PO DAILY bempedoic acid 180 mg PO DAILY clopidogrel (Plavix) 75 mg PO DAILY ezetimibe (Zetia) 10 mg PO DAILY fexofenadine (Jules Allergy) 180 mg PO DAILY PRN fluticasone furoate-vilanterol 100-25 mcg/dose (Breo Ellipta) 1 inh inhalation DAILY 30 days fluticasone propionate 50 mcg/actuation 2 sprays intranasal DAILY PRN isosorbide mononitrate ER 30 mg PO DAILY metoprolol succinate ER (Toprol XL) 100 mg PO DAILY nitroglycerin 0.4 mg sublingual Q5M PRN rosuvastatin 10 mg PO DAILY umeclidinium 62.5 mcg/actuation (Incruse Ellipta) 1 inh inhalation BEDTIME 30 days Do you need a note to return to daycare/school/sports/work: No HPI HPI Dyspnea: Details: 64 YEARS OLD GENTLEMAN COMES AFTER 6 MONTHS FOR HIS ROUTINE FOLLOW-UP. HE HAS BEEN DOING VERY WELL ALL ALONG EXCEPT FOR INTERMITTENT INCREASE IN THE SYMPTOMS. CONTINUES TO USE BREO ELLIPTA 100-25 ONLY ONCE A DAY. AND HE HAS BEEN USING INCRUSE ELLIPTA ONLY WHEN SYMPTOMS GET SOMEWHAT WORSE. HE HAS HARDLY NEEDED TO USE THE RESCUE INHALER SIMILARLY HE HAS ONLY OCCASIONAL NASAL CONGESTION FOR WHICH HE TAKES JULES NEEDED AND IF THAT DOES NOT HELP THEN HE WOULD USE FLONASE FOR A FEW DAYS. PHYSICALLY HE REMAINS ACTIVE , WITHOUT ANY. EXCESSIVE SHORTNESS OF BREATH [facility] Medical History History of nasal cavity, middle ear, or sinus malignancy History of ST elevation myocardial infarction (STEMI) Personal history of nicotine dependence Allergic rhinitis Restrictive lung disease Asthma-COPD overlap syndrome Family history of coronary artery disease CAD (coronary artery disease) Stable angina Surgical History History of nasal septoplasty History of tonsillectomy S/P cardiac cath Family History Father CVD (cardiovascular disease) Mother CVD (cardiovascular disease) Maternal Grandfather CVD (cardiovascular disease) Maternal Grandmother CVD (cardiovascular disease) Paternal Grandfather CVD (cardiovascular disease) Paternal Grandmother CVD (cardiovascular disease) Social History Alcohol intake: current Alcohol intake frequency: 0-2 drinks per day Alcohol type: beer Patient Tobacco Use Status: Former Tobacco user Tobacco use type: Cigarette Years Smoked: (former smoker, onset 26yo, 1ppd x 32yrs, 30pyh, quit 2019) Advance Directives Date on File: 03/10/20 Review of Systems Const All systems reviewed & are unremarkable except as noted in HPI and below Eyes Reports no additional complaints ENT Reports nasal congestion (Controlled) Card Denies chest pain, Denies irregular heart rhythm and Denies leg edema Resp Reports as per HPI GI Reports no additional complaints Reports no additional complaints Musc Reports myalgias Skin/Breast Reports system reviewed and no additional complaints, except as documented Neuro Reports no additional complaints Psych Reports no additional complaints Endo Reports no additional complaints Physical Exam Vital Signs: Last Vital Signs Pulse 74 11/18/24 13:22 BP 122/72 11/18/24 13:22 Pulse Ox 93 11/18/24 13:22 Oxygen Delivery Method Room Air 11/18/24 13:22 BMI result Body Mass Index 30.8 Const General: comfortable, no acute distress, alert and awake Orientation/consciousness: patient oriented x3 HEENT Head: Yes normal to inspection General nose exam: No nasal polyps present and No nasal discharge present Face and sinus: Yes sinuses nontender Mouth: oropharynx normal Throat: Yes posterior oropharynx normal Eyes General: appearance normal, both eyes and all related structures Neck Neck: Yes normal visual inspection, Yes no lymphadenopathy, Yes trachea midline and Yes no JVD Thyroid: Thyroid normal Chest Chest palpation & inspection: normal inspection of the chest, normal palpation of entire chest wall and no tenderness Resp Other: Percussion note is resonant, breath sounds are slightly distant with prolonged expiratory phase. No wheezes rhonchi or crepitations are heard. Cardio Palpation: normal PMI Rate: regular rate Rhythm: regular rhythm Heart sounds: no gallops and no murmurs Peripheral pulses: Peripheral pulses 2+ throughout GI Palpation (GI): Soft to palpation, nontender, No hepatosplenomegaly present and no masses Auscultation: normal bowel sounds Back/Spine/Pelvis Thoracic/Lumbar Spine: thoracic and lumbar spine normal to inspection, thoraco- lumbar ROM limited and thoraco-lumbar spasm Skin General skin exam: no rashes or lesions noted Neuro General: patient oriented x3 and no focal motor deficits Cranial nerves: Yes CN's II-XII intact bilaterally Extrem General: Yes normal to inspection, Yes no clubbing, cyanosis or edema and Yes no calf tenderness Psych Appearance: grossly normal and well kempt Speech and movement: Normal speech and movement present Assessment & Plan Assessment & Plan (1) Asthma-COPD overlap syndrome: Comment: (Former smoker, PFT showed [id number] obstructive airway disorder with excellent response to bronchodilator therapy) Patient claims to be feeling better with the current medical regimen. Currently symptoms of bronchial asthma are minimal and well controlled.. He has not needed to use the rescue. Inhaler for several weeks Code(s): J44.9 - Chronic obstructive pulmonary disease, unspecified Category: Medical Plan: Continue to use Breo 100-251 inhalation daily May use Incruse Ellipta only once a day p.r.n. if he has an exacerbation of the symptoms. (2) Restrictive lung disease: Comment: PFT showed moderately severe restrictive pulmonary disorder. He does not expand his lower part of the lungs, well . There is elevation of Rt. hemidiaphragm , may be chronic , and partly contributing to restrictive lung disease. Code(s): J98.4 - Other disorders of lung Category: Medical Plan: Encouraged to keep on doing deep breathing exercises as much as he can do, on a daily basis. (3) Personal history of nicotine dependence: Comment: (former smoker, onset 26yo, 1ppd x 32yrs, 30pyh, quit 2019) Code(s): Z87.891 - Personal history of nicotine dependence Category: Medical Plan: Advise that he should continue in annual lung screening program for at least 5 more years (4) Allergic rhinitis: Comment: MILD TO MODERATE , chronic , may be the source of mucous in AMs. Seems to be controlled with current meds. Code(s): J30.9 - Allergic rhinitis, unspecified Category: Medical Plan: Jules 180 mg p.o. daily p.r.n. for increased nasal congestion Also may use Flonase nasal spray for a few days at a time if symptoms of nasal congestion. Have increased Coding Level of Care Code Est Pt Level 3 (77384) Diagnoses Asthma-COPD overlap syndrome J44.9 Restrictive lung disease J98.4 Personal history of nicotine dependence Z87.891 Allergic rhinitis J30.9
[2024-11-18 13:22] VITALS: BP 122/72; PULSE 74; O2SAT 93; BMI 30.8
== END 2024-11-18 13:48 | disposition home or self-care (01) ==
LOC: HO.HPS 13:16
PROVIDERS: PCP Internal Medicine; Visit Provider Internal Medicine
DX: J44.9 Chronic obstructive pulmonary disease, unspecified (principal); J98.4 Other disorders of lung; Z87.891 Personal history of nicotine dependence; J30.9 Allergic rhinitis, unspecified
CPT/HCPCS: 99213

== ENCOUNTER → 2024-11-18 13:15 | Outpatient (BNVA) | payer MEDICARE, MEDICAID, SELFPAY | PROVIDERS: PCP Internal Medicine; Visit Provider Internal Medicine | DX: J44.9 Chronic obstructive pulmonary disease, unspecified (principal); J98.4 Other disorders of lung; J30.9 Allergic rhinitis, unspecified; Z87.891 Personal history of nicotine dependence | CPT/HCPCS: 99212 ==

== ENCOUNTER 2025-03-08 13:01 | Outpatient (AMB) | payer MEDICARE, MEDICAID, SELFPAY ==
--- NOTE | 2025-03-08 13:19 | A.OFFPC_ITS ---
Vital Signs 03/08/25 13:23 03/08/25 13:30 Height 5 ft 8 in Weight 204 lb BMI 31.0 BP 144/78 H 132/74 Blood Pressure Location Lt brachial Lt brachial Position Sitting Sitting Respiration 14 Pulse 78 Pulse Source Pulse Oximeter Temp 98.1 F Temp Source Oral Pulse Oximetry (%) 98 Oxygen Delivery Method Room Air Intake Visit Reasons: aston from [facility]quin (dr anaya) Intake Note: New patient visit Veterinarian Poultry Required: No Allergies azithromycin Allergy (Unknown, Verified 03/08/25 13:19) Unknown losartan Adverse Reaction (Unknown, Verified 03/08/25 13:19) Unknown Tobacco use date assessed: 03/08/25 Dental Screening Dental Screen Date: 03/08/25 Did you have a dental visit in the last 12 months?: No Did you have a dental problem in the last 6 months where you did not have access to dental care?: No Was dental information given to patient?: Patient declined HPI HPI Comments History of Present Illness Details 64-year-old male with a past medical his tory of CAD s/p [place] PCI 2020, hypertension, COPD, asthma, fatty liver, presenting to [facility] care CV-Follows with cardiology. On norvasc, imdur, metoprolol, crestor. Denies chest pain, shortness of breath. Asthma/COPD-followed by pulmonology. He is feeling well on current medications GI: Fatty liver. Mild elevated LFTs. Chronic fatigue: Poor sleep at times. Declines sleep study, sleep meds Colonoscopy: Overdue. Agrees to cologuard. ROS CONSTITUTIONAL: Denies weight loss, fever and chills. HEENT: Denies changes in vision and hearing. RESPIRATORY: Denies SOB and cough. CV: Denies palpitations and CP GI: Denies abdominal pain, nausea, vomiting and diarrhea. : Denies dysuria and urinary frequency. MSK: Denies new myalgia and joint pain. SKIN: Denies rash and pruritus. NEUROLOGICAL: Denies headache PSYCHIATRIC: Denies recent changes in mood. PHYSICAL EXAM: GENERAL: Alert and oriented x 3. NAD EYES: EOMI. Anicteric. HENT: Moist mucous membranes. No scleral icterus. No cervical lymphadenopathy. LUNGS: Clear to auscultation bilaterally. CARDIOVASCULAR: Regular rate and rhythm. No murmur. No JVD. ABDOMEN: Soft, non-tender +bs EXTREMITIES: No edema. Non-tender. SKIN: No rashes or lesions. Warm. NEUROLOGIC: No focal neurological deficits. CN II-XII grossly intact PSYCHIATRIC: Cooperative. Appropriate mood and affect [facility] Medical History History of nasal cavity, middle ear, or sinus malignancy History of ST elevation myocardial infarction (STEMI) Personal history of nicotine dependence Allergic rhinitis Restrictive lung disease Asthma-COPD overlap syndrome Family history of coronary artery disease CAD (coronary artery disease) Stable angina Surgical History History of nasal septoplasty History of tonsillectomy S/P cardiac cath Family History Father CVD (cardiovascular disease) Mother CVD (cardiovascular disease) Maternal Grandfather CVD (cardiovascular disease) Maternal Grandmother CVD (cardiovascular disease) Paternal Grandfather CVD (cardiovascular disease) Paternal Grandmother CVD (cardiovascular disease) Social History [place] [place] Alcohol intake: current Alcohol intake frequency: 0-2 drinks per day Alcohol type: beer Patient Tobacco Use Status: Former Tobacco user Tobacco use type: Cigarette Years Smoked: (former smoker, onset 26yo, 1ppd x 32yrs, 30pyh, quit 2020) e-Cigarette/Vaping Use: Never Used Second Hand Smoke Exposure: No Advance Directives Date on File: 03/10/20 service: No Current occupational status: disabled Cognitive needs: No Hearing needs: No Vision needs: Yes (minor trouble with vision. ) Questionnaire PHQ-9 Over the last 2 weeks, how often have you been bothered by any of the following problems? 1. Little interest or pleasure in doing things: not at all 2. Feeling down, depressed, or hopeless: not at all 3. Trouble falling or staying asleep, or sleeping too much: several days 4. Feeling tired or having little energy: several days 5. Poor appetite or overeating: not at all 6. Feeling bad about yourself - or that you are a failure or have let yourself or your family down: not at all 7. Trouble concentrating on things, such as reading the newspaper or watching television: not at all 8. Moving or speaking so slowly that other people could have noticed. Or the opposite - being so fidgety or restless that you have been moving around a lot more than usual: not at all 9. Thoughts that you would be better off or of hurting yourself in some way: not at all Total score: 2 Depression Screening Interpretation: Negative Depression Screening Done: Yes 39399 - PHQ-9 Billing: Yes Source: Developed by Drs. Dick Thomas, Laure Chiu, Nikolai Bronson and colleagues, with an educational josselyn from [employer]. Thrive Questionnaire Date Thrive assessed: 03/07/25 I am a: Patient What is your living situation today?: I have a steady place to live Within the past 12 months, did the food you bought not last and you didn't have the money to get more?: Never true Within the past 12 months, did you worry whether your food would run out before you got money to buy more?: Never true Do you have trouble paying for medicines?: No Do you have trouble getting transportation to medical appointments?: No Do you have trouble paying your heating and electricity bill?: No Do you have trouble taking care of your child, family member or friend?: No Do you have trouble with day-to-day activities such as bathing, preparing meals, shopping, managing finances, etc.?: No Are you currently unemployed and looking for a job?: No Are you interested in more education?: No Please select the resources that you would like help with: None Currently or been in a relationship where the following occur: No concerns reported THRIVE Score: 0 AUDIT C Alcohol Use Questionnaire (AUDIT-C) 1. How often do you have a drink containing alcohol?: 4 or more times a week 2. How many drinks containing alcohol do you have on a typical day when you are drinking?: 1 or 2 3. How often do you have six or more drinks on one occasion?: Never Total Score: 4 CARLOTA-7 AMB Questionnaire CARLOTA-7 Feeling nervous, anxious, or on edge: 0 = Not at all Not being able to stop or control worryin = Not at all Worrying too much about different things: 0 = Not at all Trouble relaxin = Not at all Being so restless that it is hard to sit still: 0 = Not at all Becoming easily annoyed or irritable: 0 = Not at all Feeling afraid as if something awful might happen: 0 = Not at all Total CARLOTA-7 score (0-4 normal; 5-9 mild; 10-14 moderate; 15-21 severe): 0 Source: Developed by Drs. Dick Thomas, Laure Chiu, Nikolai Bronson and colleagues, with an educational josselyn from [employer]. Physical exam (Primary Care) Tobacco/Smoking Status: Tobacco use Status Patient Tobacco Use Status Former Tobacco user 03/22/22 14:20 Tobacco use type Cigarette 03/22/22 14:20 Depression Screening Interpretation: Negative Thrive Assessment: Date of Thrive Assessment Date Thrive assessed 03/07/25 03/07/25 14:25 Currently or been in a relationship where the following occur: No concerns reported Coding Level of Care Code New Pt Level 4 (43455) Complex EM visit Add On G2211 Diagnoses Coronary artery disease involving [place] coronary artery of [place] heart without angina pectoris I25.10 Coronary Disease-Associated Artery/Lesion type: [place] artery [place] vs. transplanted heart: [place] heart Associated angina: without angina Screening examination for bacterial and spirochetal disease Z11.2; Z11.8 Asthma-COPD overlap syndrome J44.9 Additional Codes PHQ-9 - 58343 - PHQ-9 Billing: Yes ([id number]) Assessment & Plan Assessment & Plan (1) CAD (coronary artery disease): Comment: (PCI of LCx & RCA with 60-65 % stenosis of LAD and is on medical therapy) Code(s): I25.10 - Atherosclerotic heart disease of [place] coronary artery without angina pectoris Category: Medical Qualifiers: Coronary Disease-Associated Artery/Lesion type: [place] artery [place] vs. transplanted heart: [place] heart Associated angina: without angina Qualified Code(s): I25.10 - Atherosclerotic heart disease of [place] coronary artery without angina pectoris (2) Screening examination for bacterial and spirochetal disease: Code(s): Z11.2 - Encounter for screening for other bacterial diseases; Z11.8 - Encounter for screening for other infectious and parasitic diseases (3) Asthma-COPD overlap syndrome: Comment: (Former smoker, PFT showed [id number] obstructive airway disorder with excellent response to bronchodilator therapy) Patient claims to be feeling better with the current medical regimen. Currently symptoms of bronchial asthma are minimal and well controlled.. He has not needed to use the rescue. Inhaler for several weeks Code(s): J44.9 - Chronic obstructive pulmonary disease, unspecified Category: Medical Plan 64 year old to establish care Past medical, surgical, social reviewed BP well controlled on medications. LDL still not on goal. Refuses injectable. Chronic fatigue-a1c, cmp reviewed and normal. Labs ordered copd/asthma-controlled without exacerbation cologuard ordered. highly encouraged to complete Orders: Orders Vitamin B12 and Folate Today E78.5 - Hyperlipidemia, unspecified, I25.10 - Atherosclerotic heart disease of [place] coronary artery without angina pectoris, J44.9 - Chronic obstructive pulmonary disease, unspecified, Z12.5 - Encounter for screening for malignant neoplasm of prostate IRON PROFILE Today E78.5 - Hyperlipidemia, unspecified, I25.10 - Atherosclerotic heart disease of [place] coronary artery without angina pectoris, J44.9 - Chronic obstructive pulmonary disease, unspecified, Z12.5 - Encounter for screening for malignant neoplasm of prostate Lyme IgG/IgM w/reflex to WB Today E78.5 - Hyperlipidemia, unspecified, I25.10 - Atherosclerotic heart disease of [place] coronary artery without angina pectoris, J44.9 - Chronic obstructive pulmonary disease, unspecified, Z12.5 - Encounter for screening for malignant neoplasm of prostate TSH reflex Free T4 Today E78.5 - Hyperlipidemia, unspecified, I25.10 - Atherosclerotic heart disease of [place] coronary artery without angina pectoris, J44.9 - Chronic obstructive pulmonary disease, unspecified, Z12.5 - Encounter for screening for malignant neoplasm of prostate Prostate Specific Antigen Today Z12.5 - Encounter for screening for malignant neoplasm of prostate Referrals Cologuard Test Z12.11 - Encounter for screening for malignant neoplasm of colon, Z12.12 - Encounter for screening for malignant neoplasm of rectum Medications: New metoprolol succinate ER 100 mg PO DAILY 90 tabs 3RF
[2025-03-08 13:23] VITALS: BP 144/78; PULSE 78; RESP 14; TEMP 36.7; O2SAT 98; BMI 31.0
[2025-03-08 13:30] VITALS: BP 132/74
== END 2025-03-08 13:52 | disposition home or self-care (01) ==
LOC: HO.HMCFM 13:02
PROVIDERS: PCP Internal Medicine; Visit Provider Internal Medicine
DX: I25.10 Atherosclerotic heart disease of native coronary artery without angina pectoris (principal); Z11.2 Encounter for screening for other bacterial diseases; Z11.8 Encounter for screening for other infectious and parasitic diseases; J44.9 Chronic obstructive pulmonary disease, unspecified

== ENCOUNTER 2025-03-08 13:01 | Outpatient (REF) | payer MEDICARE, MEDICAID, SELFPAY ==
[2025-03-08 18:38] LABS: Iron 146 mcg/dL (45-160); Percent Iron Saturation 42 % (15-50); Total Iron Binding Capacity 349 mcg/dL (228-428); Unsaturated Iron Binding 203 ug/dL
[2025-03-08 18:58] LABS: Folate 5.1 ng/mL (> or = 4.0); Prostate Specific Antigen 0.62 ng/mL (<0.05-4.0); Vitamin B12 274 pg/mL (200-900)
[2025-03-09 07:29] LABS: Lyme Blot 1.26 index
[2025-03-14 13:00] LABS: 39KD (IgG) Band NON-REACTIVE; 41KD (IgG) Band REACTIVE; Lyme Abs Screen POSITIVE; Lyme IgG Blot Interp NEGATIVE (NEGATIVE); Lyme IgM Blot Interp NEGATIVE (NEGATIVE)
== END 2025-03-08 13:02 | disposition home or self-care (01) ==
LOC: HO.WFDLDS 13:01
PROVIDERS: PCP Internal Medicine; Visit Provider Internal Medicine
DX: Z12.5 Encounter for screening for malignant neoplasm of prostate (principal); Z11.2 Encounter for screening for other bacterial diseases; Z11.8 Encounter for screening for other infectious and parasitic diseases; I25.10 Atherosclerotic heart disease of native coronary artery without angina pectoris; J44.89 Other specified chronic obstructive pulmonary disease; E78.5 Hyperlipidemia, unspecified
CPT/HCPCS: 36415; 82607; 82746; 83540; 84153; 84443; 86617; 86618; 96127; 99202

== ENCOUNTER 2025-03-14 10:43 | Outpatient (AMB) | payer MEDICARE, MEDICAID, SELFPAY ==
--- NOTE | 2025-03-14 10:46 | MHC.OFFVIS ---
Vital Signs 03/14/25 10:48 Height 5 ft 8 in Weight 206 lb 5.643 oz BMI 31.4 BP 130/76 Blood Pressure Location Lt brachial Position Sitting Pulse 65 Pulse Source Monitor Intake Visit Reasons: 4 mth f/up Intake Note: 4 mth f/up Promotions Executive Producer Required: No Accompanied by: Self / Same As Patient Allergies azithromycin Allergy (Unknown, Verified 03/08/25 13:19) Unknown losartan Adverse Reaction (Unknown, Verified 03/08/25 13:19) Unknown Medication List - Last Reconciled 03/14/25 by Alex Galarza MD albuterol sulfate 90 mcg/actuation (Ventolin HFA) 2 puffs inhalation Q4H PRN amlodipine 5 mg PO DAILY aspirin (Adult Low Dose Aspirin) 81 mg PO DAILY bempedoic acid 180 mg PO DAILY clopidogrel (Plavix) 75 mg PO DAILY ezetimibe (Zetia) 10 mg PO DAILY fexofenadine (Radha Allergy) 180 mg PO DAILY PRN fluticasone furoate-vilanterol 100-25 mcg/dose (Breo Ellipta) 1 inh inhalation DAILY 30 days fluticasone propionate 50 mcg/actuation 2 sprays intranasal DAILY PRN isosorbide mononitrate ER 30 mg PO DAILY metoprolol succinate ER 100 mg PO DAILY nitroglycerin 0.4 mg sublingual Q5M PRN rosuvastatin 10 mg PO DAILY umeclidinium 62.5 mcg/actuation (Incruse Ellipta) 1 inh inhalation BEDTIME 30 days HPI Comments Details: 64-year-old gentleman here follow-up. He had previous PCI to circumflex and right coronary. Left anterior descending artery was approximately 60-65% stenosis at that time . He presented for f/u and was complaining of shortness of breath. He was taken back for cardiac catheterization which showed patent stents in the right coronary artery as well as left circumflex artery. We performed FFR assessment of his left anterior descending artery which was abnormal. On pullback the gradient improved distal to the area of angiographic stenosis. Angiographically we could not find any stenosis in the area where the gradient actually existed. Also he was complaining of a lot of discomfort at rest which was not explained by the degree of coronary artery disease. We decided to stop and medically treat him and look for other reasons for his dyspnea. He was a former smoker and quit a year ago. He has followed up with pulmonology and has been diagnosed with asthma/COPD. He is on inhalers and is improving clinically. He returns for follow-up today. He has been doing reasonably well. He is able to walk and do activities but when he is going up hill he gets out of breath. He has not exercised significantly due to his breathing in the last year or 2 and probably has significant deconditioning at this 0.2. He is following with pulmonology and has been told that he is stable on the current inhalers. When he presented with acute coronary syndrome he had significant sweating and shortness of breath. He gets shortness of breath and chest tightness off and on which improves with inhalers. His main complaint is fatigue and the fact that he gets tired easily. I have explained to him that this is an unusual symptom for coronary disease. 02/17/2023: He returns for follow-up. He has been doing well. No chest discomfort or exertional shortness of breath. He is getting some breathing issues due to humidity. Taking medications regularly. No bleeding concerns. Overall clinically stable. 06/23/2023: He returns for follow-up. His dyspnea has been stable. He gets sharp left-sided chest pain lasting for few seconds along with right shoulder and leg pain. He has seen Neurology and was told that he has neuropathy. No exertional symptoms reported on follow-up. His last LDL cholesterol was 103. His target is less than 70 and by guidelines less than 55. He has not tolerated more than 10 mg of rosuvastatin. He is already on ezetimibe 10 mg daily. We discussed about PCSK9 but he has needle phobia and will not be able to inject himself. 09/26/23: He is here for follow-up. He is saying breathing is stable. He has started taking bempedoic acid and has been experiencing some aches and pains in the thighs at nighttime. He has not tolerated statins in the past. He has a needle phobia and will do use PCSK9. He has some atypical chest pains, neck pains and body aches. 05/05/2024: He returns for follow-up. Dyspnea is stable. No chest pain. No bleeding concerns currently. Taking medications regularly. Tolerating the statins at the current dose. 08/11/2024: He is here for follow-up. No chest discomfort. He has dyspnea on exertion which is stable and improves with inhalers. Blood pressure is well controlled. He has some coughing spells and he is asking whether that is due to COPD or allergies. I have explained to him that either can cause cough and he should look at his environment if there is any triggers for allergies. 11/10/2024: He is here for follow-up. He has been getting some shortness of breath and coughing since high pollen counts. No chest discomfort. 03/14/2025: He is here for follow-up. He has no chest discomfort as before. He is saying his breathing changes with allergy season and currently this is ragweed season and he is more short of breath. Taking medications regularly. Occasionally he notices clots when he blows his nose in the morning but no epistaxis/ER visits. [facility] Medical History History of nasal cavity, middle ear, or sinus malignancy History of ST elevation myocardial infarction (STEMI) Personal history of nicotine dependence Allergic rhinitis Restrictive lung disease Asthma-COPD overlap syndrome Family history of coronary artery disease CAD (coronary artery disease) Stable angina Surgical History History of nasal septoplasty History of tonsillectomy S/P cardiac cath Family History Father CVD (cardiovascular disease) Mother CVD (cardiovascular disease) Maternal Grandfather CVD (cardiovascular disease) Maternal Grandmother CVD (cardiovascular disease) Paternal Grandfather CVD (cardiovascular disease) Paternal Grandmother CVD (cardiovascular disease) [facility] Alcohol intake: current Alcohol intake frequency: 0-2 drinks per day Alcohol type: beer Patient Tobacco Use Status: Former Tobacco user Tobacco use type: Cigarette Years Smoked: (former smoker, onset 26yo, 1ppd x 32yrs, 30pyh, quit 2019) e-Cigarette/Vaping Use: Never Used Second Hand Smoke Exposure: No Advance Directives Date on File: 03/10/20 service: No Current occupational status: disabled Cognitive needs: No Hearing needs: No Vision needs: Yes (minor trouble with vision. ) Review of Systems Const Denies chills, Denies fatigue, Denies fever(s), Denies frequent falls, Denies weakness, Denies weight gain and Denies weight loss ENT Denies dizziness Card Denies chest pain, Denies leg edema, Denies lightheadedness, Denies palpitations, Denies dyspnea and Denies dyspnea on exertion Resp Denies cough, Denies dyspnea and Denies dyspnea on exertion GI Denies hematochezia Musc Denies abnormal gait, Denies muscle weakness, Denies numbness, Denies radiating pain into limb and Denies tingling Neuro Denies abnormal gait, Denies dizziness, Denies frequent falls, Denies numbness, Denies tingling and Denies weakness Endo Denies fatigue and Denies palpitations Physical Exam Vital Signs: Last Vital Signs Pulse 65 03/14/25 10:48 BP 130/76 03/14/25 10:48 BMI result Body Mass Index 31.4 GENERAL APPEARANCE: in no acute distress, pleasant. NECK: no carotid bruit, no jugular venous distention. SKIN: no suspicious lesions, warm and dry. HEART: no murmurs, regular rate and rhythm. LUNGS: clear to auscultation bilaterally. ABDOMEN: soft, nontender. EXTREMITIES: no edema. PERIPHERAL PULSES: equal. NEUROLOGIC: No gross deficits, AAO X 3 Office Procedures EKG Details: Sinus rhythm 65 beats per minute, inferior infarct, poor R-wave progression, QTC 428 milliseconds. [id number], Complete Assessment & Plan Assessment & Plan (1) Stable angina: Code(s): I20.8 - Other forms of angina pectoris Category: Medical (2) CAD (coronary artery disease): Comment: (PCI of LCx & RCA with 60-65 % stenosis of LAD and is on medical therapy) Code(s): I25.10 - Atherosclerotic heart disease of [place] coronary artery without angina pectoris Category: Medical Qualifiers: Coronary Disease-Associated Artery/Lesion type: [place] artery [place] vs. transplanted heart: [place] heart Associated angina: without angina Qualified Code(s): I25.10 - Atherosclerotic heart disease of [place] coronary artery without angina pectoris (3) PATRICK (dyspnea on exertion): Comment: Dyspnea on exertion is due to combination of, moderately severe restrictive pulmonary disorder, and obstructive airway disorder. And coronary artery disease with some degree of LAD obstructive disease. I advised him to keep on walking but avoid any sudden walking on the incline or climbing stairs. Code(s): R06.00 - Dyspnea, unspecified Category: Medical Plan [age] year gentleman here for follow-up. He has history of coronary disease with previous circumflex and RCA PCI. He has residual disease in the LAD which was medically managed. His main complaint has been dyspnea with activities which is related to lung disease and allergies. Currently due to ragweed season, he has worsening allergies and more shortness of breath. Taking medications regularly and tolerating them well. Blood pressure well controlled. Once again we discussed that if he has any consistent changes in symptoms/dyspnea then we will consider ischemic evaluation and he may need repeat angiography. Follow up with us in 6 months. Thank you for allowing me to participate in the care of your patient. Please feel free to contact me if you have any questions. Coding Level of Care Code Est Pt Level 4 (07189) Diagnoses Stable angina I20.8 Coronary artery disease involving [place] coronary artery of [place] heart without angina pectoris I25.10 Coronary Disease-Associated Artery/Lesion type: [place] artery [place] vs. transplanted heart: [place] heart Associated angina: without angina PATRICK (dyspnea on exertion) R06.00 CPT Codes EKG - CPT: [id number], Complete ([id number])
[2025-03-14 10:48] VITALS: BP 130/76; PULSE 65; BMI 31.4
== END 2025-03-14 11:20 | disposition home or self-care (01) ==
LOC: HO.HCS 10:43
PROVIDERS: PCP Internal Medicine; Visit Provider Internal Medicine Cardiovascular Disease
DX: I25.118 Atherosclerotic heart disease of native coronary artery with other forms of angina pectoris (principal); R06.00 Dyspnea, unspecified
CPT/HCPCS: 93010; 99214

== ENCOUNTER → 2025-03-14 10:43 | Outpatient (BNVA) | payer MEDICARE, MEDICAID, SELFPAY | PROVIDERS: PCP Internal Medicine; Visit Provider Internal Medicine Cardiovascular Disease | DX: I25.118 Atherosclerotic heart disease of native coronary artery with other forms of angina pectoris (principal); R06.00 Dyspnea, unspecified; R94.31 Abnormal electrocardiogram [ECG] [EKG] | CPT/HCPCS: 93005; 99212 ==

== ENCOUNTER 2025-03-16 09:21 | Outpatient (REF) | payer MEDICARE, MEDICAID, SELFPAY ==
--- NOTE | ~2025-03-16 | CT_ITS ---
EXAMINATION: CT LUNG SCREENING HISTORY: Z87.891 - Personal history of nicotine dependence TECHNIQUE: Low dose axial images were obtained from the sternal notch to upper abdomen without IV contrast per standard departmental protocol. Sagittal and coronal reformatted images were also obtained and reviewed. One or more of the following techniques was used for dose reduction: Automated exposure control, adjustment of the mA and/or kV according to patient size, use of iterative reconstruction technique. DLP: 73 mGy-cm COMPARISON: Comparison is made with the prior examination dated 06/16/2023. FINDINGS: Lung nodules: No pulmonary nodules are identified. There is minimal dependent atelectasis in the lower lobes. Emphysema: none Coronary Calcification: severe Aortic Arch Calcification: none Potentially Significant Incidentals : none Additional Chest Findings: There is no pleural or pericardial effusion. No mediastinal or axillary lymphadenopathy is identified. Visualized upper abdomen: The visualized portion of the liver demonstrates decreased attenuation, consistent with steatosis. The visualized portions of the spleen and adrenals have an unremarkable unenhanced appearance. CT/CT lung screening IMPRESSION: 1. No suspicious pulmonary nodules are identified. 2. Severe coronary arterial calcification. 3. Hepatic steatosis. LUNG-RADS ASSESSMENT: Lung-RADS 1: Negative MANAGEMENT: Continue annual screening with LDCT in 12 months Category S: N/A Electronically signed by: Dick Rockwell MD 03/16/2025 09:57 AM EDT
== END 2025-03-16 09:22 | disposition home or self-care (01) ==
LOC: HO.CT 09:21
PROVIDERS: PCP Internal Medicine; Visit Provider Physician Assistant Medical
DX: Z12.2 Encounter for screening for malignant neoplasm of respiratory organs (principal); Z87.891 Personal history of nicotine dependence
CPT/HCPCS: 71271

== ENCOUNTER → 2025-03-16 09:23 | Outpatient (BNV) | payer MEDICARE, MEDICAID, SELFPAY | PROVIDERS: PCP Internal Medicine; Visit Provider Radiology Diagnostic Radiology | DX: Z87.891 Personal history of nicotine dependence (principal) | CPT/HCPCS: 71271 ==

== ENCOUNTER 2025-05-24 13:15 | Outpatient (AMB) | payer MEDICARE, MEDICAID, SELFPAY ==
[2025-05-24 13:26] VITALS: BP 140/72; PULSE 109; O2SAT 94; BMI 31.7
--- NOTE | 2025-05-24 13:26 | MHC.OFFVIS ---
Vital Signs 05/24/25 13:26 Height 5 ft 8 in Weight 208 lb 5.389 oz BMI 31.7 BP 140/72 H Blood Pressure Location Lt brachial Position Sitting Pulse 109 H Pulse Source Pulse Oximeter Pulse Oximetry (%) 94 Oxygen Delivery Method Room Air Intake Visit Reasons: Dyspnea Intake Note: pt is here for follow up and states he coughs a lot in the cold, post nasal drip, but he is feeling very fatigued and having coughing jags. Social Worker Delinquency Prevention Required: No Dump Worker: Dump Worker offered & declined Allergies azithromycin Allergy (Unknown, Verified 05/24/25 13:49) Unknown losartan Adverse Reaction (Unknown, Verified 05/24/25 13:49) Unknown Medication List - Last Reconciled 05/24/25 by Heath Vera MD albuterol sulfate 90 mcg/actuation (Ventolin HFA) 2 puffs inhalation Q4H PRN amlodipine 5 mg PO DAILY aspirin (Adult Low Dose Aspirin) 81 mg PO DAILY bempedoic acid 180 mg PO DAILY clopidogrel (Plavix) 75 mg PO DAILY ezetimibe (Zetia) 10 mg PO DAILY fexofenadine (Radha Allergy) 180 mg PO DAILY PRN fluticasone furoate-vilanterol 100-25 mcg/dose (Breo Ellipta) 1 inh inhalation DAILY 30 days fluticasone propionate 50 mcg/actuation 2 sprays intranasal DAILY PRN isosorbide mononitrate ER 30 mg PO DAILY metoprolol succinate ER 100 mg PO DAILY nitroglycerin 0.4 mg sublingual Q5M PRN rosuvastatin 10 mg PO DAILY umeclidinium 62.5 mcg/actuation (Incruse Ellipta) 1 inh inhalation BEDTIME 30 days Do you need a note to return to daycare/school/sports/work: No HPI HPI Dyspnea: Details: Harvinder is 65 years old gentleman in good general health, and he is being followed for bronchial asthma/COPD which has been mild. Also has allergic rhinitis which flares up usually with change in the weather. He has been doing okay but since the start of winter weather he is having more bouts of cough, this is associated with increased nasal congestion and postnasal drip. He does not have any sustained bouts of wheezing. Has been using Breo 100-25 1 inhalation daily and hardly needs to use the rescue inhaler or Incruse Ellipta. But now for the past few weeks he is having more frequent bouts of cough and dryness of the throat. [facility] Medical History Hyperlipidemia History of nasal cavity, middle ear, or sinus malignancy History of ST elevation myocardial infarction (STEMI) Personal history of nicotine dependence Allergic rhinitis Restrictive lung disease Asthma-COPD overlap syndrome Family history of coronary artery disease CAD (coronary artery disease) Stable angina Surgical History History of nasal septoplasty History of tonsillectomy S/P cardiac cath Family History Father CVD (cardiovascular disease) Mother CVD (cardiovascular disease) Maternal Grandfather CVD (cardiovascular disease) Maternal Grandmother CVD (cardiovascular disease) Paternal Grandfather CVD (cardiovascular disease) Paternal Grandmother CVD (cardiovascular disease) [facility] Alcohol intake: current Alcohol intake frequency: 0-2 drinks per day Alcohol type: beer Patient Tobacco Use Status: Former Tobacco user Tobacco use type: Cigarette Years Smoked: (former smoker, onset 26yo, 1ppd x 32yrs, 30pyh, quit 2020) e-Cigarette/Vaping Use: Never Used Second Hand Smoke Exposure: No Advance Directives Date on File: 03/10/20 service: No Current occupational status: disabled Cognitive needs: No Hearing needs: No Vision needs: Yes (minor trouble with vision. ) Review of Systems Const All systems reviewed & are unremarkable except as noted in HPI and below Eyes Reports no additional complaints ENT Reports nasal congestion (Controlled) Card Denies chest pain, Denies irregular heart rhythm and Denies leg edema Resp Reports as per HPI GI Reports no additional complaints Reports no additional complaints Musc Reports myalgias Skin/Breast Reports system reviewed and no additional complaints, except as documented Neuro Reports no additional complaints Psych Reports no additional complaints Endo Reports no additional complaints Physical Exam Vital Signs: Last Vital Signs Pulse 109 H 05/24/25 13:26 BP 140/72 H 05/24/25 13:26 Pulse Ox 94 05/24/25 13:26 Oxygen Delivery Method Room Air 05/24/25 13:26 BMI result Body Mass Index 31.7 Const General: comfortable, no acute distress, alert and awake Orientation/consciousness: patient oriented x3 HEENT Head: Yes normal to inspection General nose exam: No nasal polyps present and No nasal discharge present Face and sinus: Yes sinuses nontender Mouth: oropharynx normal Throat: Yes posterior oropharynx normal Eyes General: appearance normal, both eyes and all related structures Neck Neck: Yes normal visual inspection, Yes no lymphadenopathy, Yes trachea midline and Yes no JVD Thyroid: Thyroid normal Chest Chest palpation & inspection: normal inspection of the chest, normal palpation of entire chest wall and no tenderness Resp Other: Percussion note is resonant, breath sounds are slightly distant with prolonged expiratory phase. No wheezes rhonchi or crepitations are heard. Cardio Palpation: normal PMI Rate: regular rate Rhythm: regular rhythm Heart sounds: no gallops and no murmurs Peripheral pulses: Peripheral pulses 2+ throughout GI Palpation (GI): Soft to palpation, nontender, No hepatosplenomegaly present and no masses Auscultation: normal bowel sounds Back/Spine/Pelvis Thoracic/Lumbar Spine: thoracic and lumbar spine normal to inspection, thoraco-lumbar ROM limited and thoraco-lumbar spasm Skin General skin exam: no rashes or lesions noted Neuro General: patient oriented x3 and no focal motor deficits Cranial nerves: Yes CN's II-XII intact bilaterally Extrem General: Yes normal to inspection, Yes no clubbing, cyanosis or edema and Yes no calf tenderness Psych Appearance: grossly normal and well kempt Speech and movement: Normal speech and movement present Assessment & Plan Assessment & Plan (1) Asthma-COPD overlap syndrome: Comment: (Former smoker, PFT showed [id number] obstructive airway disorder with excellent response to bronchodilator therapy)c/w ACOS He has been doing quite well but in the last few weeks having more postnasal discharge and cough. It seems to be related to possible low-grade respiratory infection with post infectious hypersensitivity of the airways . Code(s): J44.9 - Chronic obstructive pulmonary disease, unspecified Category: Medical Plan: Breo is changed to BREYNA 80-4.52 puffs b.i.d. ( as per insurance) Albuterol HFA 2 puffs Q 6 hours p.r.n.. He does have Incruse Ellipta on hand and may use a few days if symptoms get worse. I told him that he needs to have humidification in the house ,, especially at nighttime (2) Restrictive lung disease: Comment: PFT showed moderately severe restrictive pulmonary disorder. He does not expand his lower part of the lungs, well . There is elevation of Rt. hemidiaphragm , may be chronic , and partly contributing to restrictive lung disease. Code(s): J98.4 - Other disorders of lung Category: Medical Plan: Lung sounds are good throughout the lung and the restriction seems to be minimal Still advised to keep on doing deep breathing exercises about 3 times a day. (3) Personal history of nicotine dependence: Comment: (former smoker, onset 26yo, 1ppd x 32yrs, 30pyh, quit 2019) Code(s): Z87.891 - Personal history of nicotine dependence Category: Medical Plan: Continue having annual lung screening (4) Allergic rhinitis: Comment: MILD TO MODERATE , chronic , may be the source of increased cough and mucous in AMs. Seems to be controlled with current meds. Code(s): J30.9 - Allergic rhinitis, unspecified Category: Medical Plan: Use Radha 180 mg once a day. Flonase -50 2 spray in each nostril daily Coding Level of Care Code Est Pt Level 3 (34059) Diagnoses Asthma-COPD overlap syndrome J44.9 Restrictive lung disease J98.4 Personal history of nicotine dependence Z87.891 Allergic rhinitis J30.9
== END 2025-05-24 13:49 | disposition home or self-care (01) ==
LOC: HO.HPS 13:16
PROVIDERS: PCP Internal Medicine; Visit Provider Internal Medicine
DX: J44.9 Chronic obstructive pulmonary disease, unspecified (principal); J98.4 Other disorders of lung; Z87.891 Personal history of nicotine dependence; J30.9 Allergic rhinitis, unspecified
CPT/HCPCS: 99213

== ENCOUNTER → 2025-05-24 13:15 | Outpatient (BNVA) | payer MEDICARE, MEDICAID, SELFPAY | PROVIDERS: PCP Internal Medicine; Visit Provider Internal Medicine | DX: J44.89 Other specified chronic obstructive pulmonary disease (principal); J30.9 Allergic rhinitis, unspecified; J98.4 Other disorders of lung; Z87.891 Personal history of nicotine dependence | CPT/HCPCS: 99212 ==